=== PATIENT | male | born 1990 | race Caucasian/White ===

== ENCOUNTER 2023-01-19 14:58 | Outpatient (AMB) | payer OTHER, SELFPAY ==
[2023-01-19 15:18] VITALS: BP 120/72; PULSE 68; O2SAT 98; BMI 23.0
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
== END 2023-01-19 16:45 | disposition home or self-care (01) ==
PROVIDERS: PCP Family Medicine; Visit Provider Family Medicine
DX: K85.90 Acute pancreatitis without necrosis or infection, unspecified (principal); I44.7 Left bundle-branch block, unspecified; Z11.3 Encounter for screening for infections with a predominantly sexual mode of transmission; Z00.00 Encounter for general adult medical examination without abnormal findings
CPT/HCPCS: 99203

== ENCOUNTER 2023-03-08 09:58 | Outpatient (REF) | payer OTHER, SELFPAY ==
[2023-03-08 11:25] LABS: MANUAL DIFF FLAG NO
[2023-03-08 11:32] LABS: Basophils Percent Auto 0.8 % (0-2); Eosinophils Absolute Auto 0.3 X10*3/uL (0.0-0.4); Eosinophils Percent Auto 4.8 % (0-4); Hematocrit 43.1 % (42.0-52.0); Hemoglobin 14.3 g/dl (14.0-18.0); Imm Gran Abs Auto 0.01 X10*3/uL (0.00-0.03); Imm Gran Pct Auto 0.2 % (0.0-0.4); Lymphocytes Percent Auto 37.9 % (20-40); Mean Corpuscular HGB Conc 33.2 g/dl (31.0-36.0); Mean Corpuscular Hemoglobin 29.1 pg (27.0-33.0); Mean Corpuscular Volume 87.8 fL (80.0-98.0); Mean Platelet Volume 9.7 fL (9.4-12.4); Monocytes Absolute Auto 0.6 X10*3/uL (0.1-1.2); Monocytes Percent Auto 10.5 % (2-11); Neutrophils Absolute Auto 2.4 x10*3/uL (2.0-8.3); Neutrophils Percent Auto 45.8 % (45-73); Platelet Count 345 X10*3/uL (160-400); Red Blood Count 4.91 X10*6/uL (4.60-5.80); Red Cell Distribution Width 11.9 % (11.0-16.0); White Blood Count 5.2 X10*3/uL (4.8-10.8)
[2023-03-08 11:44] LABS: Appearance Urine Clear; Color Urine Yellow; Glucose Urine UA Negative (Negative); Leukocyte Esterase Urine Negative (Negative); Nitrite Urine Negative (Negative); PH 6.5 (5.0-9.0); Urine Blood Negative (Negative); Urine Ketones Negative (Negative); Urine Protein Negative (Neg-Trace)
[2023-03-08 12:12] LABS: Estimated Average Glucose 97 mg/dL
[2023-03-08 13:07] LABS: Alanine Aminotransferase 13 U/L (0-40); Albumin Level 4.6 g/dL (3.5-5.0); Alkaline Phosphatase 48 U/L (39-117); Anion Gap 12 (12-20); Aspartate Amino Transferase 23 U/L (5-37); Bilirubin Total 0.8 mg/dL (0.0-1.0); Blood Urea Nitrogen 17 mg/dL (9-16); Calcium 9.5 mg/dL (8.4-10.2); Carbon Dioxide 26 mmol/L (22-29); Chloride 106 mmol/L (96-108); Cholesterol 287 mg/dL (<200); Estimated Glomerular Filt Rate > 60; Glucose Fasting 83 mg/dL (60-99); HDL Cholesterol 47 mg/dL (>40); LDL Cholesterol Calculated 222 mg/dL (<100); Lipase 64 U/L (8-78); Potassium 3.9 mmol/L (3.3-5.1); Sodium 140 mmol/L (135-145); Total Protein 7.7 g/dL (6.5-8.0); Triglycerides 91 mg/dL (<150)
[2023-03-08 13:09] LABS: Creatinine Urine 225.64 mg/dL; Microalbum/Creatinine Ratio Ur 3.1 ug/mg cr (<30)
[2023-03-08 13:22] LABS: CT PCR NOT DETECTED (Not Detect.); NG PCR NOT DETECTED (Not Detect.)
[2023-03-08 13:23] LABS: TSH reflex Free T4 4.35 uIU/mL (0.32-4.0)
[2023-03-08 14:08] LABS: Free T4 (Free Thyroxine) 0.74 ng/dL (0.71-1.85)
[2023-03-09 04:12] LABS: Syphilis Screen Nonreactive (Nonreactive)
[2023-03-09 04:20] LABS: HBS Num1 137.53 mIU/mL (0-7.99); HBc Num1 0.25 S/CO (0.00-0.79); HBsAGNum1 0.36 S/CO (0.00-0.99); HIV AB/AG Nonreactive (Nonreactive); HIV Num 1 0.07 S/CO (0.00-0.99); Hepatitis B Core Antibody Nonreactive (Nonreactive); Hepatitis B Surface Antigen Negative (Negative); ~HepC Num1 0.21 S/CO (0.00-0.79); ~Hepatitis B Surface Antibody REACTIVE (Nonreactive); ~Hepatitis C Antibody Nonreactive (Nonreactive)
== END 2023-03-08 09:59 | disposition home or self-care (01) ==
LOC: HO.WFDLDS 09:58
PROVIDERS: Visit Provider Family Medicine
DX: Z00.00 Encounter for general adult medical examination without abnormal findings (principal); Z11.4 Encounter for screening for human immunodeficiency virus [HIV]; I10 Essential (primary) hypertension; K85.90 Acute pancreatitis without necrosis or infection, unspecified; R73.01 Impaired fasting glucose; Z20.2 Contact with and (suspected) exposure to infections with a predominantly sexual mode of transmission
CPT/HCPCS: 0353U; 80053; 80061; 81003; 82043; 83036; 83690; 84439; 84443; 85025; 86704; 86706; 86780; 86803; 87340; 87389

== ENCOUNTER 2023-03-18 13:56 | Outpatient (AMB) | payer OTHER, SELFPAY ==
--- NOTE | 2023-03-18 13:58 | A.OFFPC_ITS ---
Vital Signs 03/18/23 13:59 Height 5 ft 9 in Weight 230 lb 4 oz BMI 34.0 BP 122/64 Blood Pressure Location Lt brachial Pulse 81 Pulse Source Pulse Oximeter Pulse Oximetry (%) 98 Oxygen Delivery Method Room Air Intake Visit Reasons: CPE with f/u labs and health maintenance Intake Note: Patient is here for physical today and to follow up on labs. Allergies No Known Allergies Allergy (Unverified 03/18/23 14:07) Tobacco use date assessed: 03/18/23 HPI CPE with f/u labs and health maintenance HPI Details 32 y/o male presents for a CPE with f/u labs and health maintenance. Labs were drawn 03/08/23. Reviewed labs with pt. A1c 5.0%. TC 287. LDL 222. HDL 47. Triglycerides 91. TSH elevated at 4.35. He has an appt. with Cardiology in May. He exercises about 6 days a week. [facility] Medical History High blood pressure Acute pancreatitis Pneumonia Surgical History Hx of tonsillectomy Family History Father High blood pressure Mother High blood pressure Maternal Grandfather High blood pressure Maternal Grandmother High blood pressure Paternal Grandfather High blood pressure Paternal Grandmother High blood pressure Social History Household Members: None Housing: House Are you a primary patient care manager to a significant other at home: No Do you presently have visiting nurse or other home services: No 75 years or older and lives alone: No Alcohol intake: never Patient Tobacco Use Status: Never used Tobacco e-Cigarette/Vaping Use: Never Used Special mariah needs: No service: Yes Current occupational status: employed Current occupation: [employer]. Cognitive needs: No Hearing needs: No Vision needs: No Review of Systems Const Denies chills, Denies fatigue, Denies fever(s), Denies headache(s) and Denies weakness Eyes Denies change in vision ENT Denies dizziness, Denies headache(s), Denies hearing loss, Denies nasal congestion, Denies sinus pain, Denies sinus pressure and Denies sore throat Card Denies chest pain, Denies lightheadedness, Denies dyspnea and Denies other (palpitations) Resp Denies cough, Denies dyspnea and Denies wheezing GI Denies abdominal pain, Denies melena, Denies hematochezia, Denies change in sagar wel habits, Denies dyspepsia and Denies nausea Denies hematuria and Denies dysuria Musc Denies abnormal gait, Denies myalgias, Denies arthralgias, Denies numbness and Denies tingling Skin/Breast Denies rash, Denies unusual bruising and Denies wounds Neuro Denies abnormal gait, Denies dizziness, Denies headache(s), Denies memory loss, Denies numbness, Denies Sensory deficit (Neuro), Denies tingling and Denies weakness Psych Denies anxiety, Denies depression and Denies memory loss Endo Denies cold intolerance, Denies fatigue, Denies heat intolerance, Denies polydipsia and Denies polyuria Pramod/Lymph Denies easy bleeding and Denies easy bruising Aller/Immun Denies wheezing Physical exam (Primary Care) Vital Signs: Last Vital Signs Pulse 81 03/18/23 13:59 BP 122/64 03/18/23 13:59 Pulse Ox 98 03/18/23 13:59 Oxygen Delivery Method Room Air 03/18/23 13:59 BMI result Body Mass Index 34.0 Tobacco/Smoking Status: Tobacco use Status Tobacco use date assessed 03/18/23 03/18/23 14:07 Patient Tobacco Use Status Never used Tobacco 03/18/23 14:06 e-Cigarette/Vaping Use Never Used 03/18/23 14:06 Const General: no acute distress, well developed, alert and awake Nutritional Appearance: well nourished Orientation/consciousness: patient oriented x3 HENMT Head: Yes normocephalic and Yes atraumatic Ears: hearing grossly normal bilaterally and TM's normal bilaterally General nose exam: Normal external nose present and Normal nares present Mouth: Normal oral and palatal mucosa present and moist mucous membranes Teeth and gingiva: dentition normal Throat: Yes posterior oropharynx normal Eyes General: appearance normal, both eyes and all related structures Pupils: Equal, round and reactive pupils present and Pupil accommodation reflex normal EOM: EOMs intact bilaterally Neck Neck: Yes normal visual inspection, Yes no lymphadenopathy and Yes trachea midline Thyroid: Thyroid normal Carotids: no bruits Lymphatic: no lymphadenopathy noted Chest Chest palpation & inspection: normal inspection of the chest Resp Effort & Inspection: normal respiratory effort Auscultation: clear to auscultation bilaterally Cardio Rate: regular rate Rhythm: regular rhythm Heart sounds: S1 normal heart sound present, S2 normal heart sound present, no gallops, no murmurs and no rubs Bruits: no abdominal aortic bruits and no carotid bruits GI Palpation (GI): No Abdominal aortic bruit present, Soft to palpation, nontender, No hepatosplenomegaly present and No Rebound tenderness present Auscultation: normal bowel sounds General: Yes no CVA tenderness Back/Spine/Pelvis Back: no CVA tenderness Cervical Spine: cervical ROM normal and No Cervical spine tenderness Thoracic/Lumbar Spine: thoraco-lumbar ROM normal, No pain with thoraco-lumbar ROM, No thoracic spinal tenderness and No lumbar spinal tenderness Skin Lesions: no lesions Rashes: no rashes Trauma: no lacerations or abrasions Wounds: no wounds Nails: normal Neuro General: patient oriented x3 Cranial nerves: Yes Equal, round and reactive pupils present Cognition (Neuro): normal cognition Gait exam (Neuro): Normal gait present Motor exam (neuro): 5/5 motor strength present throughout Sensory Exam: No Sensory deficit (Neuro) Deep tendon reflexes (DTR's): Right patellar reflex intensity grade: 2+ and Left patellar reflex intensity grade: 2+ Extrem General: Yes normal to inspection and No edema Psych Appearance: grossly normal Affect: normal affect Attitude: cooperative Thought process: Normal thought process present Assessment and Plan Assessment & Plan (1) Annual physical exam: Code(s): Z00.00 - Encounter for general adult medical examination without abnormal findings Plan: 32-year-old male presents for complete physical exam Encouraged healthy diet with active lifestyle and plenty of exercise (2) Elevated LDL cholesterol level: Code(s): E78.00 - Pure hypercholesterolemia, unspecified Plan: Significantly elevated LDL cholesterol Patient says he is already eating a healthy dieting getting plenty of exercise Starting atorvastatin 40 mg daily and we may need to increase this to 80 mg daily. Patient has abnormal EKG with left bundle branch block. Denies any cardiac history however, except incidental abnormal EKG during workup for pancreatitis. He is already refer to Cardiology and has an upcoming appointment in May. He is asymptomatic. (3) Elevated TSH: Code(s): R79.89 - Other specified abnormal findings of blood chemistry Plan: Mildly elevated TSH level Will repeat this and follow-up in about a month (4) Left bundle branch block: Code(s): I44.7 - Left bundle-branch block, unspecified Plan: As above, abnormal EKG and today we reviewed significantly elevated lipid level Follow-up with Cardiology as recommended Orders: Orders Triiodothyronine T3 Total Today E03.9 - Hypothyroidism, unspecified Thyroid Stimulating Hormone Today E03.9 - Hypothyroidism, unspecified Comprehensive Met. Panel Today R79.89 - Other specified abnormal findings of blood chemistry Comprehensive [place]. Panel Fast 10 Weeks Z00.00 - Encounter for general adult medical examination without abnormal findings Lipid Panel 10 Weeks Z00.00 - Encounter for general adult medical examination without abnormal findings Free T4 (Free Thyroxine) Today E03.9 - Hypothyroidism, unspecified Medications: New atorvastatin 40 mg PO BEDTIME 30 days 30 tabs 2RF Coding Level of Care Code Est Pt Level 3 (50286) Est Pt Prev Care 18-39y(88148) Diagnoses Annual physical exam Z00.00 Elevated LDL cholesterol level E78.00 Elevated TSH R79.89 Left bundle branch block I44.7
[2023-03-18 13:59] VITALS: BP 122/64; PULSE 81; O2SAT 98; BMI 34.0
== END 2023-03-18 14:46 | disposition home or self-care (01) ==
PROVIDERS: PCP Family Medicine; Visit Provider Family Medicine
DX: Z00.00 Encounter for general adult medical examination without abnormal findings (principal); E78.00 Pure hypercholesterolemia, unspecified; R79.89 Other specified abnormal findings of blood chemistry; I44.7 Left bundle-branch block, unspecified
CPT/HCPCS: 99395

== ENCOUNTER 2023-04-16 09:33 | Outpatient (REF) | payer OTHER, SELFPAY | END 2023-04-16 09:34 | disposition home or self-care (01) | LOC: HO.WFDLDS 09:33 | PROVIDERS: Visit Provider Family Medicine | DX: Z00.00 Encounter for general adult medical examination without abnormal findings (principal); E03.9 Hypothyroidism, unspecified; R79.89 Other specified abnormal findings of blood chemistry | CPT/HCPCS: 36415; 80053; 80061; 84439; 84443; 84480 ==

== ENCOUNTER 2023-04-19 13:27 | Outpatient (AMB) | payer OTHER, SELFPAY ==
--- NOTE | 2023-04-19 13:24 | MHC.PC.OV ---
Intake Visit Reasons: Lab Results Intake Note: Patient is following up on lab results. Allergies No Known Allergies Allergy (Unverified 04/19/23 13:25) Tobacco use date assessed: 04/19/23 HPI Lab Results HPI Details Telemedicine?encounter?to?follow-up?elevated?TSH?level Patient?had?mildly?elevated?TSH?level?at?his?prior?lab?check. Asymptomatic.??He?notes?that?he?has?been?exercising and?losing?weight?intentionally?and?feels?well. More?recently,?his?TSH?level?has?crept?up?slightly?but?still?is?only?a?mild?elevation?and?his?free?T4?and?total?T3?are?within?normal?limits. Started?atorvastatin?not?long?ago?and?is?tolerating?this?well. Patient?feels?well.??No?complaints. [facility] Medical History High blood pressure Acute pancreatitis Pneumonia Surgical History Hx of tonsillectomy Family History Father High blood pressure Mother High blood pressure Maternal Grandfather High blood pressure Maternal Grandmother High blood pressure Paternal Grandfather High blood pressure Paternal Grandmother High blood pressure Social History Household Members: None Housing: House Are you a primary medicare coordinator to a significant other at home: No Do you presently have visiting nurse or other home services: No 75 years or older and lives alone: No Alcohol intake: never Patient Tobacco Use Status: Never used Tobacco e-Cigarette/Vaping Use: Never Used Special mariah needs: No service: Yes Current occupational status: employed Current occupation: [employer]. Cognitive needs: No Hearing needs: No Vision needs: No Review of Systems Const Denies chills, Denies fatigue, Denies fever(s), Denies headache(s) and Denies weakness ENT Denies dizziness and Denies headache(s) Card Denies dyspnea Resp Denies cough, Denies dyspnea, Denies wheezing and Denies other ( shortness of breath) Musc Denies numbness and Denies tingling Neuro Denies dizziness, Denies headache(s), Denies numbness, Denies tingling, Denies paresthesias and Denies weakness Psych Denies anxiety and Denies depression Endo Denies fatigue Aller/Immun Denies wheezing Physical exam (Primary Care) Tobacco/Smoking Status: Tobacco use Status Tobacco use date assessed 04/19/23 04/19/23 13:27 Patient Tobacco Use Status Never used Tobacco 04/19/23 13:27 e-Cigarette/Vaping Use Never Used 04/19/23 13:27 Const Other: Telemedicine.??Audio?only. Telehealth Telehealth Location of provider rendering services: practice address Location of patient: address on file Patient Identification confirmed using: Name, : Yes Telehealth method: voice only Patient verbally consented to treatment: Yes Patient verbally consented to billing insurance company: Yes Patient informed of any privacy concerns related to visit: Yes Minutes spent on Phone/Video with Pt.: 5 Assessment and Plan Assessment & Plan (1) Elevated TSH: Code(s): R79.89 - Other specified abnormal findings of blood chemistry Plan: Still?has?mildly?elevated?TSH?level. However,?free?T4?and?total?T3?are?within?normal?limits.??Patient?is?asymptomatic. We?will?continue?to?follow?this. (2) Elevated LDL cholesterol level: Code(s): E78.00 - Pure hypercholesterolemia, unspecified Plan: Patient?is?on?atorvastatin?and?tolerating?well. He?will?get?his?labs?drawn?prior?to?his?visit?in?June?and?we?can?discuss (3) Left bundle branch block: Code(s): I44.7 - Left bundle-branch block, unspecified Plan: Patient?feels?well. He?has?an?appointment?with?cardiology?already. Coding Level of Care Code Tele Est Pt Level 2 (17151) Diagnoses Elevated TSH R79.89 Elevated LDL cholesterol level E78.00 Left bundle branch block I44.7
== END 2023-04-19 14:45 | disposition home or self-care (01) ==
LOC: HO.HMGFM 13:27
PROVIDERS: PCP Family Medicine; Visit Provider Family Medicine
DX: R79.89 Other specified abnormal findings of blood chemistry (principal); E78.00 Pure hypercholesterolemia, unspecified; I44.7 Left bundle-branch block, unspecified
CPT/HCPCS: 99212

== ENCOUNTER 2023-04-20 07:46 | Outpatient (AMB) | payer OTHER, SELFPAY ==
--- NOTE | 2023-04-20 07:44 | MHC.OFFVIS ---
Intake Vital Signs 04/20/23 07:55 Height 5 ft 9 in Weight 195 lb BMI 28.8 BP 122/68 Blood Pressure Location Lt brachial Position Sitting Pulse 73 Intake Visit Reasons: Colonoscopy Screening Intake Note: New consult for Pancreatitis with out necrosis. Patient was s/c for Pre Colonoscopy but that was not the DX for this consult. Patient denies any GI issues. Parking Attendant Required: No Accompanied by: Self / Same As Patient Allergies No Known Allergies Allergy (Unverified 04/19/23 13:25) HPI HPI Comments History of Present Illness Details A 32-year-old male referred from PCP January 2019-back pain-returnesed a few day later-admitted-@ [facility]- dx pancreatitis-with elevated enzymes-not a drinker-at that time- npo- then advanced- no issues until 2020- random- epigastric pain- no etoh- dietary modification- abdominal pain- admitted at [facility]- again= NPO- d/c after 4 days- pain resolved - He has not had any further issues- he drinks socially- 1 beer- following day- epigastric pain- admitted in [facility]- with pancreatitis 2nd attempt, LVM requesting a call back to schedule appt. Dx: Pancreatitis without necrosis One week reminder set up for follow up call. Wyatt Lombardo removed from item. [facility] Medical History High blood pressure Acute pancreatitis Pneumonia Surgical History Hx of tonsillectomy Family History Father High blood pressure Mother High blood pressure Maternal Grandfather High blood pressure Maternal Grandmother High blood pressure Paternal Grandfather High blood pressure Paternal Grandmother High blood pressure Social History Household Members: None Housing: House Are you a primary primary care pediatrician to a significant other at home: No Do you presently have visiting nurse or other home services: No 75 years or older and lives alone: No Alcohol intake: never Patient Tobacco Use Status: Never used Tobacco e-Cigarette/Vaping Use: Never Used Special mariah needs: No service: Yes Current occupational status: employed Current occupation: [employer]. Cognitive needs: No Hearing needs: No Vision needs: No Review of Systems Const All systems reviewed & are unremarkable except as noted in HPI and below Card Denies chest pain and Denies dyspnea Resp Denies dyspnea GI Denies abdominal pain, Denies hematochezia, Denies change in bowel habits, Denies diarrhea, Denies loose stools, Denies nausea and Denies vomiting Assessment & Plan Assessment & Plan (1) Pancreatitis: Comment: Referred for further evaluation at 3 hospital admissions pancreatitis unclear etiology No hospital records for review Will further consult with MD given complexity Will get imaging Labs Avoid alcohol Code(s): K85.90 - Acute pancreatitis without necrosis or infection, unspecified Plan: Sent note to Dr. 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 with no Plan Returned call to patient Ultrasound-if negative will get MRI to rule out structural damage/pancreas divisum-if negative genetic testing Avoid alcohol Labs Patient Instructions: A pleasant 32-year-old male referred for further evaluation hx pancreatitis with 3 hospital admission- Discussed plan to further consult with MD however we will get imaging-will discuss best modality Labs, Avoid alcohol Encouraged to call with questions or concerns Will follow back in [place] after ultrasound Coding Level of Care Code New Pt Level 4 (17104) Diagnoses Pancreatitis K85.90 Time Spent (min) 35 Comment 2nd/3rd opinion-
[2023-04-20 07:55] VITALS: BP 122/68; PULSE 73; BMI 28.8
== END 2023-04-21 13:12 | disposition home or self-care (01) ==
PROVIDERS: PCP Family Medicine; Visit Provider Physician Assistant
DX: K85.90 Acute pancreatitis without necrosis or infection, unspecified (principal)
CPT/HCPCS: 99204

== ENCOUNTER → 2023-04-20 07:46 | Outpatient (BNVA) | payer OTHER, SELFPAY | PROVIDERS: PCP Family Medicine; Visit Provider Physician Assistant ==

== ENCOUNTER 2023-05-19 19:42 | Emergency (ER) | payer OTHER, SELFPAY ==
--- NOTE | ~2023-05-19 | CT_ITS ---
EXAMINATION: CT ABDOMEN AND PELVIS WITHOUT CONTRAST CLINICAL INFORMATION: Flank pain. COMPARISON: None available. TECHNIQUE: Multidetector volumetric imaging was performed from the superior aspect of the liver through the pubic symphysis. Sagittal and coronal reformatted images were obtained on the technologist's workstation. This CT examination was performed using dose optimization techniques as appropriate, variously including the following: *Automated exposure control *Adjustment of mA and/or kV according to patient size (this includes techniques or standardized protocols for targeted exams where dose is matched to indication/reason for exam; i.e. extremities or head) *Use of iterative reconstruction technique DLP: 567 mGy-cm FINDINGS: LUNG BASES: Bibasilar subsegmental atelectasis. No focal consolidation or pleural effusion. LIVER, GALLBLADDER, AND BILIARY TREE: The liver is normal in size, shape, and attenuation. No focal hepatic lesion or biliary ductal dilatation is present. The gallbladder is unremarkable with no evidence of radiopaque gallstones, gallbladder wall thickening, or obvious pericholecystic inflammatory changes. PANCREAS: Subtle proximal peripancreatic fat stranding. Homogeneous appearance of the pancreatic parenchyma. No main duct dilatation. SPLEEN: Unremarkable. ADRENAL GLANDS: Unremarkable. KIDNEYS AND URETERS: Indeterminate coarse calcifications abutting the anterior surface of the mid to upper right kidney. No nephrolithiasis or hydronephrosis. No perinephric fat stranding. BLADDER: Unremarkable. GASTROINTESTINAL TRACT: The stomach and the small bowel are nondilated. Normal appendix. No evidence of bowel obstruction. ABDOMINAL WALL: Small fat-containing umbilical hernia. LYMPH NODES: No lymphadenopathy. VASCULAR: Normal caliber abdominal aorta. Mild nonspecific mesenteric vasculature engorgement, for instance along the mesentery of the small bowel in the central abdomen image 39 series 3. PELVIC VISCERA: Unremarkable. OSSEOUS STRUCTURES: Unremarkable. CT/CT abdomen pelvis wo IV con IMPRESSION: 1. Subtle proximal peripancreatic fat stranding suggesting acute pancreatitis. Correlate with lipase levels. 2. Mild nonspecific mesenteric vasculature engorgement, possibly physiologic although this could also be seen with gastroenteritis. 3. No nephrolithiasis or hydronephrosis. 4. Indeterminate coarse calcifications abutting the anterior surface of the mid to upper right kidney; uncertain if these could represent sequela of prior surgery or sequela of old trauma/chronic subcapsular hematoma. Out of precaution, a follow-up preferable MRI of the abdomen is recommended in 6-12 months for reevaluation.
[2023-05-19 19:48] VITALS: BP 126/66; PULSE 77; RESP 16; TEMP 36.8; O2SAT 98; BMI 28.4
[2023-05-19 20:06] LABS: MANUAL DIFF FLAG NO
[2023-05-19 20:08] LABS: Basophils Absolute Auto 0.1 X10*3/uL (0.0-0.2); Basophils Percent Auto 0.6 % (0-2); Eosinophils Absolute Auto 0.3 X10*3/uL (0.0-0.4); Hematocrit 39.3 % (42.0-52.0); Hemoglobin 13.3 g/dl (14.0-18.0); Imm Gran Abs Auto 0.01 X10*3/uL (0.00-0.03); Imm Gran Pct Auto 0.1 % (0.0-0.4); Lymphocytes Absolute Auto 3.1 X10*3/uL (1.2-4.9); Lymphocytes Percent Auto 40.1 % (20-40); Mean Corpuscular HGB Conc 33.8 g/dl (31.0-36.0); Mean Corpuscular Hemoglobin 28.9 pg (27.0-33.0); Mean Corpuscular Volume 85.2 fL (80.0-98.0); Mean Platelet Volume 9.1 fL (9.4-12.4); Monocytes Absolute Auto 0.7 X10*3/uL (0.1-1.2); Monocytes Percent Auto 9.5 % (2-11); Neutrophils Absolute Auto 3.5 x10*3/uL (2.0-8.3); Neutrophils Percent Auto 45.7 % (45-73); Platelet Count 307 X10*3/uL (160-400); Red Blood Count 4.61 X10*6/uL (4.60-5.80); Red Cell Distribution Width 11.8 % (11.0-16.0); White Blood Count 7.7 X10*3/uL (4.8-10.8)
[2023-05-19 20:11] LABS: Appearance Urine Clear; Color Urine Yellow; Glucose Urine UA Negative (Negative); Leukocyte Esterase Urine Negative (Negative); Nitrite Urine Negative (Negative); PH 6.5 (5.0-9.0); Urine Blood Negative (Negative); Urine Ketones Negative (Negative); Urine Protein Negative (Neg-Trace)
[2023-05-19 20:28] LABS: Alanine Aminotransferase 15 U/L (0-40); Albumin Level 4.7 g/dL (3.5-5.0); Alkaline Phosphatase 55 U/L (39-117); Anion Gap 11 (12-20); Aspartate Amino Transferase 33 U/L (5-37); Bilirubin Total 0.6 mg/dL (0.0-1.0); Blood Urea Nitrogen 18 mg/dL (9-16); Calcium 9.2 mg/dL (8.4-10.2); Carbon Dioxide 26 mmol/L (22-29); Chloride 107 mmol/L (96-108); Creatinine Clr Calc Pharmacy 104.4; Estimated Glomerular Filt Rate > 60; Glucose Random 99 mg/dL (60-115); Potassium 3.8 mmol/L (3.3-5.1); Sodium 140 mmol/L (135-145); Total Protein 7.5 g/dL (6.5-8.0)
[2023-05-19 21:19] VITALS: BP 135/78; PULSE 72; RESP 17; TEMP 36.8; O2SAT 98
[2023-05-19 21:43] LABS: Ethanol < 10 mg/dL; Lipase 36 U/L (8-78); Triglycerides 94 mg/dL (<150)
--- NOTE | 2023-05-19 21:43 | ED.ABDPAIN ---
HPI - Abdominal Pain General Chief Complaint: Abdominal Pain Stated Complaint: severe kidney pain Time Seen by Provider: 05/19/23 21:40 Source: patient Mode of arrival: ambulatory Limitations: no limitations History of Present Illness HPI narrative: Patient with history of idiopathic pancreatitis last flare-up was in 10/01 non alcoholic comes here with bilateral flank pain started today afternoon no nausea no vomiting no abdominal pain does not feel hungry no fever no chills no urine complaints patient never had any kidney stone in previous CT scan no injury no leg weakness Related Data Previous Rx's Medication Instructions Recorded atorvastatin 40 mg tablet 40 mg PO BEDTIME 30 days #30 tabs 03/18/23 cyclobenzaprine 10 mg tablet 10 mg PO Q8H #20 tabs 05/19/23 oxycodone 5 mg tablet 5 mg PO Q6H PRN pain #30 tabs 05/19/23 Allergies Allergy/AdvReac Type Severity Reaction Status Date / Time No Known Allergies Allergy Unverified 04/19/23 13:25 Review of Systems Review of Systems Yes all other systems are reviewed and are negative [facility] Past Medical History Medical History High blood pressure Acute pancreatitis Pneumonia Surgical History Hx of tonsillectomy Family History Family History Father High blood pressure Mother High blood pressure Maternal Grandfather High blood pressure Maternal Grandmother High blood pressure Paternal Grandfather High blood pressure Paternal Grandmother High blood pressure Social History Social History Household Members: None Housing: House Are you a primary care provider to a significant other at home: No Do you presently have visiting nurse or other home services: No Alcohol intake: never Patient Tobacco Use Status: Never used Tobacco Smoked in Last 30 Days: No e-Cigarette/Vaping Use: Never Used Use of substances other than those prescribed or required for medical reasons: No Special mariah needs: No Advance Directives: No Advance Directives Information Provided: No service: Yes Current occupational status: employed Current occupation: [employer]. Cognitive needs: No Hearing needs: No Vision needs: No Physical Exam ED Vital Signs: Vital Signs - 24 hr 05/19/23 19:48 05/19/23 21:19 Temperature 98.2 F 98.2 F Pulse Rate 77 72 Respiratory Rate 16 17 Blood Pressure 126/66 135/78 Pulse Oximetry 98 98 Oxygen Delivery Method Room Air Room Air BMI result Body Mass Index 28.4 Appearance: Alert. Oriented X3. No acute distress. Eyes: No pallor no icterus ENT: Pharynx normal. Oral Mucosa moist Neck: Normal inspection. Neck supple. CVS: Normal heart rate and rhythm. Pulses normal. Respiratory: No respiratory distress. Equal air entry bilateral, no wheezing/rales/rhonchi Abdomen: Soft and nontender. Bowel sounds are present, no mass palpable bilateral flank tenderness no midline tenderness no spinal tenderness Skin: Skin warm and dry. Normal skin color. Normal skin turgor. Extremities: No lower extremity edema. No calf tenderness Neuro: Oriented X 3. No motor deficit. No sensory deficit.No cerebellar signs , cranial nerves II-XII intact Medical Decision Making Differential Diagnosis Differential Diagnoses: The differential diagnosis associated with the presentation includes Musculoskeletal pain/UTI/kidney stone/pancreatitis Lab Data MDM Lab Attestation statement: I reviewed the patient's lab results. 05/19/23 20:01 05/19/23 20:01 Labs: Lab Results 05/19/23 05/19/23 Range/Units 20:01 20:02 WBC 7.7 (4.8-10.8) X10*3/uL RBC 4.61 (4.60-5.80) X10*6/uL Hgb 13.3 L (14.0-18.0) g/dl Hct 39.3 L (42.0-52.0) % MCV 85.2 (80.0-98.0) fL MCH 28.9 (27.0-33.0) pg MCHC 33.8 (31.0-36.0) g/dl RDW 11.8 (11.0-16.0) % Plt Count 307 (160-400) X10*3/uL MPV 9.1 L (9.4-12.4) fL Immature Gran % (Auto) 0.1 (0.0-0.4) % Neut % (Auto) 45.7 (45-73) % Lymph % (Auto) 40.1 H (20-40) % [place] % (Auto) 9.5 (2-11) % Eos % (Auto) 4.0 (0-4) % Baso % (Auto) 0.6 (0-2) % Lymph # (Auto) 3.1 (1.2-4.9) X10*3/uL [place] # (Auto) 0.7 (0.1-1.2) X10*3/uL Eos # (Auto) 0.3 (0.0-0.4) X10*3/uL Baso # (Auto) 0.1 (0.0-0.2) X10*3/uL Abs Immat Gran (auto) 0.01 (0.00-0.03) X10*3/uL Absolute Neuts (auto) 3.5 (2.0-8.3) x10*3/uL Absolute Nucleated RBC 0.000 (0.0-0.012) X10*3/uL Nucleated RBC % (auto) 0.0 (0.0-0.2) /100WBC Sodium 140 (135-145) mmol/L Potassium 3.8 (3.3-5.1) mmol/L Chloride 107 (96-108) mmol/L Carbon Dioxide 26 (22-29) mmol/L Anion Gap 11 L (12-20) BUN 18 H (9-16) mg/dL Creatinine 1.12 (0.5-1.4) mg/dL Estim Creat Clear Calc 104.4 Estimated GFR > 60 Random Glucose 99 (60-115) mg/dL Calcium 9.2 (8.4-10.2) mg/dL Total Bilirubin 0.6 (0.0-1.0) mg/dL AST 33 (5-37) U/L ALT 15 (0-40) U/L Alkaline Phosphatase 55 (39-117) U/L Lactate Dehydrogenase 191 (118-273) U/L Total Protein 7.5 (6.5-8.0) g/dL Albumin 4.7 (3.5-5.0) g/dL Triglycerides 94 (<150) mg/dL Lipase 36 (8-78) U/L Urine Color Yellow Urine Appearance Clear Urine pH 6.5 (5.0-9.0) Ur Specific [place] 1.010 (1.005-1.025) Urine Protein Negative (Neg-Trace) mg/dL Urine Glucose (UA) Negative (Negative) mg/dL Urine Ketones Negative (Negative) mg/dL Urine Blood Negative (Negative) Urine Nitrite Negative (Negative) Ur Leukocyte Esterase Negative (Negative) Ethyl Alcohol < 10 mg/dL Medications Administered Discontinued Medications Generic Name Dose Route Start Last Admin Trade Name Freq PRN Reason Stop Dose Admin Cyclobenzaprine HCl 10 mg 05/19/23 23:39 05/19/23 23:55 Cyclobenzaprine Hcl 10 Mg Tablet PO 05/19/23 23:40 10 mg ONCE ONE Administration Morphine Sulfate 15 mg 05/19/23 21:53 05/19/23 22:03 Morphine Sulfate Immed Release 15 Mg Tablet PO 05/19/23 21:54 15 mg ONCE ONE Administration Oxycodone HCl 10 mg 05/19/23 23:39 05/19/23 23:55 Oxycodone Hcl Immed Release 5 Mg Tablet PO 05/19/23 23:40 10 mg ONCE ONE Administration Discharge Plan Discharge Clinical Impression: Pancreatitis, Back pain Patient Disposition: Home, Self-Care Instructions: Pancreatitis (ED), Back Pain (ED) Additional Instructions: Drink plenty of fluids Clear liquids advanced slowly Pain medication as prescribed Report to the ER if worsening of the pain/vomiting Prescriptions: New oxycodone 5 mg tablet 5 mg PO Q6H PRN (Reason: pain) Qty: 30 0RF Rx Instructions: Partial Fill upon patient request. cyclobenzaprine 10 mg tablet 10 mg PO Q8H Qty: 20 0RF No Action atorvastatin 40 mg tablet 40 mg PO BEDTIME 30 Days Qty: 30 2RF Interventions: ED Discharge Assessment Last Done: 05/20/23 00:00 Discharge Date/Time: 05/20/23 00:21
[2023-05-19 21:54] LABS: Lactate Dehydrogenase 191 U/L (118-273)
[2023-05-19] MEDS: Morphine Sulfate Immed Release 15 MG TABLET PO (22:03)
[2023-05-19] MEDS: Cyclobenzaprine HCl 10 MG TABLET PO (23:55)
[2023-05-19] MEDS: oxyCODONE HCl Immed Release 5 MG TABLET 10 MG PO (23:55)
== END 2023-05-20 00:21 | disposition home or self-care (01) ==
PROVIDERS: Emergency Medicine; Emergency Provider Internal Medicine; PCP Family Medicine
DX: K85.90 Acute pancreatitis without necrosis or infection, unspecified (principal); M54.50 Low back pain, unspecified; Z79.899 Other long term (current) drug therapy
CPT/HCPCS: 36415; 74176; 80053; 80307; 81003; 83615; 83690; 84478; 85025; 99284

== ENCOUNTER 2023-05-21 08:40 | Outpatient (AMB) | payer OTHER, SELFPAY ==
[2023-05-21 08:47] VITALS: BP 134/80; PULSE 94; BMI 29.2
--- NOTE | 2023-05-21 08:47 | MHC.OFFVIS ---
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 Patient himself denies having any cardiac issues including coronary disease or myocardial infarction or cardiomyopathy or in fact anything cardiac sounding the past. Apparently had episodes of pancreatitis. Recent ER visit with some back pain and according to patient he was told that could be from inflammation of pancreas. He still in lot of back pain and does not look very comfortable. However, no cardiac symptoms like chest pain or shortness of breath or anything along those lines. [facility] Medical History High blood pressure Acute pancreatitis Pneumonia Surgical History Hx of tonsillectomy Family History Father High blood pressure Mother High blood pressure Maternal Grandfather High blood pressure Maternal Grandmother High blood pressure Paternal Grandfather High blood pressure Paternal Grandmother High blood pressure Social History Household Members: None Housing: House Are you a primary manager of care to a significant other at home: No Do you presently have visiting nurse or other home services: No 75 years or older and lives alone: No Alcohol intake: never Patient Tobacco Use Status: Never used Tobacco e-Cigarette/Vaping Use: Never Used Special mariah needs: No service: Yes Current occupational status: employed Current occupation: [employer]. Cognitive needs: No Hearing needs: No Vision needs: No Review of Systems Const Denies weakness ENT Denies dizziness Card Denies chest pain, Denies chest pain with activity, Denies syncope, Denies rapid heart rate, Denies pedal edema, Denies edema, Denies leg edema, Denies lightheadedness, Denies palpitations, Denies dyspnea, Denies dyspnea on exertion and Denies orthopnea Resp Denies cough, Denies dyspnea and Denies dyspnea on exertion GI Denies hematochezia and Denies change in stool character Musc Denies abnormal gait, Denies muscle cramps, Denies muscle weakness, Denies numbness, Denies radiating pain into limb and Denies tingling Neuro Denies abnormal gait, Denies dizziness, Denies syncope, Denies numbness, Denies tingling and Denies weakness Endo Denies palpitations Physical Exam Vital Signs: Last Vital Signs Pulse 94 05/21/23 08:47 BP 134/80 05/21/23 08:47 BMI result Body Mass Index 29.2 Const General: comfortable and no acute distress Orientation/consciousness: patient oriented x3 HEENT Other: Unremarkable Head: Yes normal to inspection Neck Neck: Yes normal visual inspection Chest Chest palpation & inspection: normal inspection of the chest Resp Auscultation: clear to auscultation bilaterally Cardio Palpation: normal PMI Heart sounds: S1 normal heart sound present, S2 normal heart sound present, no gallops, no murmurs and no rubs GI Palpation (GI): Soft to palpation Back/Spine/Pelvis Other: unremarkable Skin General skin exam: no rashes or lesions noted Neuro General: patient oriented x3 Extrem General: Yes normal to inspection Psych Mental Status: mental status grossly normal Assessment & Plan Assessment & Plan (1) Left bundle branch block: Code(s): I44.7 - Left bundle-branch block, unspecified Plan In the recent EKG, underlying rhythm is sinus at 59/Min; left bundle-branch block pattern noted. No previous EKG for comparison. Pathophysiology of the bundle-branch block discussed with patient. Understands. We will get echocardiogram for LV function assessment and for any cardiomyopathy. Coronary CTA to be performed to assess for any CAD/coronary anomaly. Follow-up after testing. Orders: Orders CT Cardiac Coronary Angio Today I25.10 - Atherosclerotic heart disease of [place] coronary artery without angina pectoris, I44.7 - Left bundle-branch block, unspecified CA echo transthoracic complete Today I44.7 - Left bundle-branch block, unspecified Coding Level of Care Code New Pt Level 4 (62988) Diagnoses Left bundle branch block I44.7
== END 2023-05-21 09:10 | disposition home or self-care (01) ==
PROVIDERS: PCP Family Medicine; Visit Provider Internal Medicine
DX: I44.7 Left bundle-branch block, unspecified (principal)
CPT/HCPCS: 99204

== ENCOUNTER → 2023-05-21 08:40 | Outpatient (BNVA) | payer OTHER, SELFPAY | PROVIDERS: PCP Family Medicine; Visit Provider Internal Medicine | DX: I44.7 Left bundle-branch block, unspecified (principal) | CPT/HCPCS: 99202 ==

== ENCOUNTER 2023-07-19 11:33 | Outpatient (REF) | payer OTHER, SELFPAY | END 2023-07-19 11:34 | disposition home or self-care (01) | LOC: HO.WFDLDS 11:33 | PROVIDERS: Visit Provider Family Medicine | DX: Z00.00 Encounter for general adult medical examination without abnormal findings (principal); R79.89 Other specified abnormal findings of blood chemistry; E78.00 Pure hypercholesterolemia, unspecified | CPT/HCPCS: 36415; 80053; 80061; 84439; 84443 ==

== ENCOUNTER 2023-08-16 09:52 | Outpatient (AMB) | payer OTHER, SELFPAY ==
[2023-08-16 10:26] VITALS: BP 120/84; PULSE 57
--- NOTE | 2023-08-16 10:26 | MHC.OFFVIS ---
Intake Vital Signs 08/16/23 10:26 Height 5 ft 9 in Weight 203 lb 4.259 oz BMI 30.0 BP 120/84 Blood Pressure Location Lt brachial Position Sitting Pulse 57 Pulse Source Pulse Oximeter Intake Visit Reasons: f/u after CTA Ply Splicer Required: No Allergies No Known Allergies Allergy (Verified 08/16/23 10:28) Medication List - Last Reconciled 08/16/23 by Linda Trinh, SONYA-C No Known Home Meds HPI f/u after CTA HPI Details Kiran is a 32-year-old male with past medical history of hypertension, pancreatitis, left bundle branch block who presents after recent CTA of the coronary arteries. Today he reports he has been feeling well with no concerning symptoms. He denies chest discomfort at rest or with activity. No shortness of breath, palpitations, presyncope, syncope, PND, orthopnea or edema. Reports good activity tolerance. 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 Tells me he goes to the gym 6 days a week and runs for exercise. [facility] Medical History (Updated 08/16/23 @ 11:34 by Linda Trinh, SONYA-C) High blood pressure Acute pancreatitis Pneumonia Surgical History Hx of tonsillectomy Family History Father High blood pressure Mother High blood pressure Maternal Grandfather High blood pressure Maternal Grandmother High blood pressure Paternal Grandfather High blood pressure Paternal Grandmother High blood pressure Social History Household Members: None Housing: House Are you a primary child care leader to a significant other at home: No Do you presently have visiting nurse or other home services: No Alcohol intake: never Patient Tobacco Use Status: Never used Tobacco e-Cigarette/Vaping Use: Never Used Special mariah needs: No service: Yes Current occupational status: employed Current occupation: [employer]. Cognitive needs: No Hearing needs: No Vision needs: No Review of Systems Const All systems reviewed & are unremarkable except as noted in HPI and below Denies fatigue Card Denies chest pain and Denies dyspnea on exertion Resp Denies dyspnea on exertion Psych Denies anxiety Endo Denies fatigue Physical Exam Vital Signs: Last Vital Signs Pulse 57 08/16/23 10:26 BP 120/84 08/16/23 10:26 BMI result Body Mass Index 30.0 Const General: cooperative, healthy appearing, comfortable and no acute distress Orientation/consciousness: patient oriented x3 Neck Neck: Yes normal visual inspection Resp Effort & Inspection: normal respiratory effort Auscultation: clear to auscultation bilaterally, no crackles, no rales, no rhonchi and no wheezes Cardio Jugular venous distension: no JVD Rate: regular rate Rhythm: regular rhythm Heart sounds: S1 normal heart sound present, S2 normal heart sound present, no murmurs and no rubs GI Inspection: Yes normal to inspection Skin General skin exam: no rashes or lesions noted Neuro General: patient oriented x3 Extrem General: Yes normal to inspection, No no pedal edema and No calf tenderness Psych Appearance: grossly normal Mental Status: mental status grossly normal Speech and movement: Normal speech and movement present Assessment & Plan Assessment & Plan (1) Abnormal EKG: Code(s): R94.31 - Abnormal electrocardiogram [ECG] [EKG] Plan: EKG has finding of left bundle branch block. Unknown chronicity. No other cardiac history. Does have history of hypertension. He underwent a CTA of the coronary arteries on 08/06/2023 showing no coronary artery disease. An echocardiogram was previously ordered however not completed as of yet. Will help him make this appointment prior to leaving the office today. Plan to call him with echo results once available. Diagnosis of left bundle branch block and it is association with future cardiomyopathy reviewed with him. He states understanding. Cardiology follow-up in 1 year, sooner if needed. (2) Left bundle branch block: Code(s): I44.7 - Left bundle-branch block, unspecified Plan: As above (3) High blood pressure: Code(s): I10 - Essential (primary) hypertension Plan: History of hypertension, not requiring medication management at this time. Blood pressure is in the normal range presently. Plan Time spent on chart review, documentation, interview and assessment Coding Level of Care Code Est Pt Level 3 (79475) Diagnoses Abnormal EKG R94.31 Left bundle branch block I44.7 High blood pressure I10 Time Spent (min) 22
== END 2023-08-16 10:53 | disposition home or self-care (01) ==
PROVIDERS: PCP Family Medicine; Visit Provider Nurse Practitioner Family
DX: R94.31 Abnormal electrocardiogram [ECG] [EKG] (principal); I44.7 Left bundle-branch block, unspecified; I10 Essential (primary) hypertension
CPT/HCPCS: 99213

== ENCOUNTER → 2023-08-16 09:52 | Outpatient (BNVA) | payer OTHER, SELFPAY | PROVIDERS: PCP Family Medicine; Visit Provider Nurse Practitioner Family | DX: R94.31 Abnormal electrocardiogram [ECG] [EKG] (principal); I44.7 Left bundle-branch block, unspecified; I10 Essential (primary) hypertension | CPT/HCPCS: 99212 ==

== ENCOUNTER 2023-08-23 10:26 | Outpatient (AMB) | payer OTHER, SELFPAY ==
[2023-08-23 10:30] VITALS: BP 125/74; PULSE 66; O2SAT 96; BMI 30.3
--- NOTE | 2023-08-23 10:30 | MHC.PC.OV ---
Vital Signs 08/23/23 10:30 Height 5 ft 9 in Weight 205 lb 4 oz BMI 30.3 BP 125/74 Blood Pressure Location Lt brachial Position Sitting Pulse 66 Pulse Source Pulse Oximeter Pulse Oximetry (%) 96 Oxygen Delivery Method Room Air Intake Visit Reasons: f/u hypercholesterolemia, see comments Intake Note: Patient is following up on hypercholesterolemia. Allergies No Known Allergies Allergy (Verified 08/23/23 10:32) Tobacco use date assessed: 08/23/23 Dental Screening Dental Screen Date: 08/23/23 Did you have a dental visit in the last 12 months?: Yes Did you have a dental problem in the last 6 months where you did not have access to dental care?: No Was dental information given to patient?: Patient has dentist HPI f/u hypercholesterolemia, see comments HPI Details 32 y/o male presents to f/u hypercholesterolemia. Labs were drawn 07/19/23. Reviewed labs with pt. TC 247. LDL worsened from 103 to 187. HDL 41. TSH elevated at 4.18. PFSH Medical History High blood pressure Acute pancreatitis Pneumonia Surgical History Hx of tonsillectomy Family History Father High blood pressure Mother High blood pressure Maternal Grandfather High blood pressure Maternal Grandmother High blood pressure Paternal Grandfather High blood pressure Paternal Grandmother High blood pressure Social History Household Members: None Housing: House Are you a primary managed care director to a significant other at home: No Do you presently have visiting nurse or other home services: No 75 years or older and lives alone: No Alcohol intake: never Patient Tobacco Use Status: Never used Tobacco e-Cigarette/Vaping Use: Never Used Special mariah needs: No service: Yes Current occupational status: employed Current occupation: [employer]. Cognitive needs: No Hearing needs: No Vision needs: No Questionnaire PHQ-9 Over the last 2 weeks, how often have you been bothered by any of the following problems? 1. Little interest or pleasure in doing things: not at all 2. Feeling down, depressed, or hopeless: not at all 3. Trouble falling or staying asleep, or sleeping too much: not at all 4. Feeling tired or having little energy: not at all 5. Poor appetite or overeating: not at all 6. Feeling bad about yourself - or that you are a failure or have let yourself or your family down: not at all 7. Trouble concentrating on things, such as reading the newspaper or watching television: not at all 8. Moving or speaking so slowly that other people could have noticed. Or the opposite - being so fidgety or restless that you have been moving around a lot more than usual: not at all 9. Thoughts that you would be better off or of hurting yourself in some way: not at all Total score: 0 Source: Developed by Drs. Ze Villatoro, Marnie Olsen, Tim Painter and colleagues, with an educational jase from [employer]. Thrive Questionnaire Date Thrive assessed: 08/23/23 I am a: Patient What is your living situation today?: I have a steady place to live Within the past 12 months, did the food you bought not last and you didn't have the money to get more?: Never true Within the past 12 months, did you worry whether your food would run out before you got money to buy more?: Never true Do you have trouble paying for medicines?: No Do you have trouble getting transportation to medical appointments?: No Do you have trouble paying your heating and electricity bill?: No Do you have trouble taking care of your child, family member or friend?: No Do you have trouble with day-to-day activities such as bathing, preparing meals, shopping, managing finances, etc.?: No Are you currently unemployed and looking for a job?: No Are you interested in more education?: No THRIVE Score: 0 AUDIT C Alcohol Use Questionnaire (AUDIT-C) 1. How often do you have a drink containing alcohol?: Never 3. How often do you have six or more drinks on one occasion?: Never Total Score: 0 POLLY-7 AMB Questionnaire POLLY-7 Date POLLY - 7 assessed: 08/23/23 Feeling nervous, anxious, or on edge: 0 = Not at all Not being able to stop or control worryin = Not at all Worrying too much about different things: 0 = Not at all Trouble relaxin = Not at all Being so restless that it is hard to sit still: 0 = Not at all Becoming easily annoyed or irritable: 0 = Not at all Feeling afraid as if something awful might happen: 0 = Not at all Total POLLY-7 score (0-4 normal; 5-9 mild; 10-14 moderate; 15-21 severe): 0 Source: Developed by Drs. Ze Villatoro, Marnie Olsen, Tim Painter and colleagues, with an educational jase from [employer]. Review of Systems Const Denies chills, Denies fatigue, Denies fever(s), Denies headache(s) and Denies weakness ENT Denies dizziness and Denies headache(s) Card Denies dyspnea Resp Denies cough, Denies dyspnea, Denies wheezing and Denies other (shortness of breath) Musc Denies numbness and Denies tingling Neuro Denies dizziness, Denies headache(s), Denies numbness, Denies tingling and Denies weakness Psych Denies anxiety and Denies depression Endo Denies fatigue Aller/Immun Denies wheezing Physical exam (Primary Care) Vital Signs: Last Vital Signs Pulse 66 08/23/23 10:30 BP 125/74 08/23/23 10:30 Pulse Ox 96 08/23/23 10:30 Oxygen Delivery Method Room Air 08/23/23 10:30 BMI result Body Mass Index 30.3 Tobacco/Smoking Status: Tobacco use Status Tobacco use date assessed 08/23/23 08/23/23 10:33 Patient Tobacco Use Status Never used Tobacco 08/23/23 10:33 e-Cigarette/Vaping Use Never Used 08/23/23 10:33 PHQ-9: PHQ-9 Score PHQ-9: Total score 0 08/23/23 11:01 Thrive Assessment: Date of Thrive Assessment Date Thrive assessed 08/23/23 08/23/23 10:38 Const General: well developed; No acute distress Nutritional Appearance: well nourished Orientation/consciousness: patient oriented x3 HENMT Head: Yes normocephalic and Yes atraumatic Eyes General: appearance normal, both eyes and all related structures Pupils: Equal, round and reactive pupils present EOM: EOMs intact bilaterally Resp Effort & Inspection: normal respiratory effort Auscultation: clear to auscultation bilaterally Cardio Rate: regular rate Rhythm: regular rhythm Heart sounds: S1 normal heart sound present, S2 normal heart sound present, no gallops, no murmurs and no rubs Neuro General: patient oriented x3 and gait normal Cranial nerves: Yes Equal, round and reactive pupils present Psych Affect: normal affect Assessment and Plan Assessment & Plan (1) Hyperlipidemia: Code(s): E78.5 - Hyperlipidemia, unspecified Plan: Lipids?significantly?elevated?compared?with?few?months?ago. Had?been?on?atorvastatin?in?the?past. Will?recheck?in?about?a?month. Will?discuss?atorvastatin?or?other?medication?if?needed Recent?angiogram?did?not?show?any?coronary?artery?disease (2) Elevated TSH: Code(s): R79.89 - Other specified abnormal findings of blood chemistry Plan: TSH?mildly?elevated?but?lower?than?prior?check. Will?recheck?in?about?a?month (3) Left bundle branch block: Code(s): I44.7 - Left bundle-branch block, unspecified Plan: Followed?by?cardiology No?evidence?of?coronary?artery?disease Follow-up?with?Cardiology?as?recommended (4) Pancreatitis: Code(s): K85.90 - Acute pancreatitis without necrosis or infection, unspecified Plan: Recurrent?pancreatitis?and?recent?visit?to?the?emergency?department Referred?him?back?to?gastroenterology?for?ongoing?workup. Orders: Referrals Gastroenterology Referral K85.90 - Acute pancreatitis without necrosis or infection, unspecified Coding Level of Care Code Est Pt Level 4 (11767) Diagnoses Hyperlipidemia E78.5 Elevated TSH R79.89 Left bundle branch block I44.7 Pancreatitis K85.90
== END 2023-08-23 11:14 | disposition home or self-care (01) ==
PROVIDERS: PCP Family Medicine; Visit Provider Family Medicine
DX: E78.5 Hyperlipidemia, unspecified (principal); R79.89 Other specified abnormal findings of blood chemistry; I44.7 Left bundle-branch block, unspecified; K85.90 Acute pancreatitis without necrosis or infection, unspecified
CPT/HCPCS: 99214

== ENCOUNTER → 2023-09-20 08:53 | Outpatient (REF) | payer OTHER, SELFPAY ==
--- NOTE | 2023-09-20 08:57 | CA_ITS ---
Transthoracic Echocardiogram Patient (Last, First, Middle): Kiran Santillan, Gender: Male Date of : 1990 Age: 32 Procedure Date: 09/20/2023 Procedure Type: Transthoracic Echocardiogram Location: OP Height: 177.8 cm Weight: 90.72 kg BSA: 2.09 m2 Heart Rate: 58 bpm BP: 115 / 75 mmHg Cherry Picker Operator: ROSE Referring MD: Gerald Holt MD Symptoms: I44.7 - Left bundle-branch block, unspecified Study Quality: Adequate ECG Rhythm: Left bundle-branch block Conclusions: - 1. Mildly dilated LV with mildly reduced LV ejection fraction 45-50% 2. Normal cardiac valvular Doppler 3. Normal RV systolic pressure 4. Mildly dilated ascending aorta at 3.8 cm 5. No gross pericardial effusion Findings Left Ventricle Mildly increased left ventricular cavity size. There is normal left ventricular wall thickness. The left ventricular systolic function is mildly decreased. The visually estimated ejection fraction is between 45-50%. There is paradoxical septal motion consistent with a left bundle branch block. Spectral Doppler is indicative of a normal filling pattern. Peak GLS is -13.7%, which is moderately reduced. Right Ventricle Normal right ventricular cavity size and systolic function. Atria The left atrium is normal in size. There is no evidence of interatrial shunt. The right atrium is normal in size. Aortic Valve Normal aortic valve structure and function. There is no aortic valve stenosis. There is no aortic valve regurgitation. Mitral Valve Normal mitral valve structure and function. There is trace mitral valve regurgitation. There is no mitral valve stenosis. Pulmonic Valve The pulmonic valve is likely normal. There is trace pulmonic valve regurgitation. Tricuspid Valve Normal tricuspid valve structure. There is trace tricuspid valve regurgitation. The right ventricular systolic pressure is normal. The right ventricular systolic pressure is 16 mmHg. Normal right atrial pressure. There is no evidence of pulmonary hypertension. Great Vessels The pulmonary artery was not well visualized. There is mild dilatation of the ascending aorta measuring 3.80 cm. Venous The inferior vena cava is normal in size and collapses greater than 50% with inspiration. Pericardium/Pleural There is no evidence of pericardial effusion. Prior Study Comparison No prior study available for comparison. Measurements 2D Linear Measurements IVSd: 1.16 0.6-0.9/0.6-1.0 cm LVIDd: 5.52 3.9-5.3/4.2-5.9 cm LVIDd Index: 2.64 2.4-3.2/2.2-3.1 cm/m2 LVIDs: 4.44 2.0-3.6 cm LVPWd: 1.14 0.7-1.1 cm LA Diam: 3.40 2.7-3.8/3.0-4.0 cm LAIDs Index: 1.63 1.5-2.3 cm/m2 LV Mass: 322.42 67-162/88-224 g LV Mass Index: 154.27 43-95/49-115 g/m2 LVOT Diam: 2.40 3.0+(-)1.3 cm 2D Systolic Function EF 4C: 46.70 >55% EF 2C: 50.40 >55% EF BiP: 48.40 >55% Mitral Valve MV Pk E: 0.68 MV PK A: 0.52 MV Decel Time: 222.00 E/A: 1.30 E'Lateral: 5.11 E'Medial: 7.72 E/E' Med: 8.80 E/E' Lat: 13.30 PHT: 65.00 MVA PHT: 3.38 Decel [place]: 3.07 Aortic Valve AoV Pk Kam: 1.09 AoV Mn Kam: 0.87 AoV VTI: 0.23 AoV Pk Grad: 5.00 Aov Mn Grad: 3.00 LINDEN Cont.VTI: 3.59 LVOT LVOT Pk Kam: 0.91 LVOT Mn Kam: 0.68 LVOT VTI: 0.18 LVOT Pk Grad: 3.00 LVOT Mn Grad: 2.00 LVOT Diam: 2.40 LVOT Area: 4.52 Diastolic Function MV Pk E: 0.68 MV Pk A: 0.52 E/A: 1.30 E'Medial: 7.72 E/E' Med: 8.80 E' Laterial: 5.11 E/E' Lat: 13.30 Right Ventricle TAPSE (mm): 24.00 TVS' Kam: 11.00 Tricuspid Valve TR Pk Kam: 1.79 TR Pk Grad: 13.00 RA Press: 3.00 RVSP: 16.00 Great Vessels Aorta Sinus of Valsalva: 3.90 2.0-3.5 cm Ao Asc: 3.80 2.1-3.4 cm Pulmonary Valve PV Pk Kam: 0.87 Peak PV Grad: 3.00 Updated in Other Vendor System with Status of Final Rell Sen MD electronically signed on 09/21/2023 4:04:30 PM with status of Final
[2023-09-20 11:43] LABS: Alanine Aminotransferase 13 U/L (0-40); Albumin Level 4.5 g/dL (3.5-5.0); Alkaline Phosphatase 55 U/L (39-117); Anion Gap 12 (12-20); Aspartate Amino Transferase 20 U/L (5-37); Bilirubin Total 0.7 mg/dL (0.0-1.0); Blood Urea Nitrogen 20 mg/dL (9-16); Calcium 9.6 mg/dL (8.4-10.2); Carbon Dioxide 28 mmol/L (22-29); Chloride 107 mmol/L (96-108); Cholesterol 279 mg/dL (<200); Estimated Glomerular Filt Rate > 60; Glucose Fasting 87 mg/dL (60-99); HDL Cholesterol 43 mg/dL (>40); LDL Cholesterol Calculated 220 mg/dL (<100); Lipase 38 U/L (8-78); Potassium 3.7 mmol/L (3.3-5.1); Sodium 143 mmol/L (135-145); Total Protein 7.6 g/dL (6.5-8.0); Triglycerides 81 mg/dL (<150)
== END ==
LOC: HO.CARD 08:53
PROVIDERS: Absent Provider Family Medicine; PCP Family Medicine; Visit Provider Internal Medicine
DX: I44.7 Left bundle-branch block, unspecified (principal); E78.5 Hyperlipidemia, unspecified; K85.90 Acute pancreatitis without necrosis or infection, unspecified; Z00.00 Encounter for general adult medical examination without abnormal findings
CPT/HCPCS: 36415; 80053; 80061; 83690; 93306; 93356

== ENCOUNTER → 2023-09-20 08:57 | Outpatient (BNV) | payer OTHER, SELFPAY | PROVIDERS: Absent Provider Family Medicine; PCP Family Medicine; Visit Provider Internal Medicine Cardiovascular Disease | DX: I42.9 Cardiomyopathy, unspecified (principal); I44.7 Left bundle-branch block, unspecified | CPT/HCPCS: 93306; 93356 ==

== ENCOUNTER 2023-09-28 13:46 | Outpatient (AMB) | payer OTHER, SELFPAY ==
--- NOTE | 2023-09-28 13:44 | MHC.PC.OV ---
Intake Visit Reasons: f/u hyperlipidemia, elevated TSH Intake Note: Patient is following up on labs today. Allergies No Known Allergies Allergy (Verified 09/28/23 13:44) Tobacco use date assessed: 09/28/23 HPI f/u hyperlipidemia, elevated TSH HPI Details Telemedicine?appointment?to?to?follow-up?hyperlipidemia?with?cardiomyopathy. Medication?before. We?also?discussed?that?his?TSH?level?had?been?mildly?elevated?but?was?improving?and?we?could?recheck?this?with?his?next?blood?draw?in?a?couple?of?months Had?referred?patient?to?gastroenterology?for?recurrent?pancreatitis.??He?says?he?had?an?initial?appointment?but?has?not?heard?back?since. COUNTS INCLUDE 234 BEDS AT [facility] Medical History High blood pressure Acute pancreatitis Pneumonia Surgical History Hx of tonsillectomy Family History Father High blood pressure Mother High blood pressure Maternal Grandfather High blood pressure Maternal Grandmother High blood pressure Paternal Grandfather High blood pressure Paternal Grandmother High blood pressure Social History Household Members: None Housing: House Are you a primary wild animal caretaker to a significant other at home: No Do you presently have visiting nurse or other home services: No 75 years or older and lives alone: No Alcohol intake: never Patient Tobacco Use Status: Never used Tobacco e-Cigarette/Vaping Use: Never Used Special mariah needs: No service: Yes Current occupational status: employed Current occupation: [employer]. Cognitive needs: No Hearing needs: No Vision needs: No Questionnaire Thrive Questionnaire Date Thrive assessed: 08/23/23 POLLY-7 AMB Questionnaire POLLY-7 Date POLLY - 7 assessed: 08/23/23 Source: Developed by Drs. Ze Villatoro, Marnie Olsen, Tim Painter and colleagues, with an educational jase from [employer] Review of Systems Const Denies chills, Denies fatigue, Denies fever(s), Denies headache(s) and Denies weakness ENT Denies dizziness and Denies headache(s) Card Denies chest pain, Denies lightheadedness, Denies dyspnea and Denies other (Palpitations) Resp Denies cough, Denies dyspnea, Denies wheezing and Denies other ( shortness of breath) Musc Denies numbness and Denies tingling Neuro Denies dizziness, Denies headache(s), Denies numbness, Denies tingling, Denies paresthesias and Denies weakness Psych Denies anxiety and Denies depression Endo Denies fatigue Aller/Immun Denies wheezing Physical exam (Primary Care) Tobacco/Smoking Status: Tobacco use Status Tobacco use date assessed 09/28/23 09/28/23 13:45 Patient Tobacco Use Status Never used Tobacco 09/28/23 13:45 e-Cigarette/Vaping Use Never Used 09/28/23 13:45 Thrive Assessment: Date of Thrive Assessment Date Thrive assessed 08/23/23 09/28/23 13:45 Telehealth Telehealth Location of provider rendering services: practice address Location of patient: address on file Patient Identification confirmed using: Name, : Yes Telehealth method: voice only Patient verbally consented to treatment: Yes Patient verbally consented to billing insurance company: Yes Patient informed of any privacy concerns related to visit: Yes Minutes spent on Phone/Video with Pt.: 7 Assessment and Plan Assessment & Plan (1) Hyperlipidemia: Code(s): E78.5 - Hyperlipidemia, unspecified Plan: Significantly?elevated?cholesterol?levels?in?a?patient?with?cardiomyopathy. Start?atorvastatin?20?mg?daily.??Risks/benefits?discussed?with?the?patient Will?recheck?lipids?in?about?3?months (2) Elevated TSH: Code(s): R79.89 - Other specified abnormal findings of blood chemistry Plan: TSH?had?been?mildly?elevated?but?was?improving. We?can?recheck?this?with?his?next?blood?draw?and?follow-up?at?his?next?appointment (3) Pancreatitis: Code(s): K85.90 - Acute pancreatitis without necrosis or infection, unspecified Plan: Had?referred?patient?to?Gastroenterology. Patient?says?he?has?had?1?appointment?but?was?expecting?additional?appointments?with?imaging. Will?ask?the?office?to?check?on?the?status?of?that?referral Orders: Orders Free T4 (Free Thyroxine) Today E03.9 - Hypothyroidism, unspecified, R79.89 - Other specified abnormal findings of blood chemistry Lipid Panel Today E78.5 - Hyperlipidemia, unspecified, Z00.00 - Encounter for general adult medical examination without abnormal findings Thyroid Stimulating Hormone Today E03.9 - Hypothyroidism, unspecified, R79.89 - Other specified abnormal findings of blood chemistry Triiodothyronine T3 Total Today E03.9 - Hypothyroidism, unspecified, R79.89 - Other specified abnormal findings of blood chemistry Comprehensive [place]. Panel Fast Today E78.5 - Hyperlipidemia, unspecified, Z00.00 - Encounter for general adult medical examination without abnormal findings Medications: New atorvastatin 40 mg PO BEDTIME 30 tabs 3RF 30 days Coding Level of Care Code Tele Est Pt Level 2 (50438) Diagnoses Hyperlipidemia E78.5 Elevated TSH R79.89 Pancreatitis K85.90
== END 2023-09-28 17:00 ==
LOC: HO.HMGFM 13:47
PROVIDERS: PCP Family Medicine; Visit Provider Family Medicine
DX: E78.5 Hyperlipidemia, unspecified (principal); R79.89 Other specified abnormal findings of blood chemistry; K85.90 Acute pancreatitis without necrosis or infection, unspecified
CPT/HCPCS: 99212

== ENCOUNTER 2023-12-17 09:23 | Outpatient (AMB) | payer OTHER, SELFPAY ==
[2023-12-17 09:29] VITALS: BP 120/74; PULSE 71; O2SAT 98; BMI 31.0
--- NOTE | 2023-12-17 09:29 | A.OFFPC_ITS ---
Vital Signs 12/17/23 09:29 Height 5 ft 9 in Weight 210 lb BMI 31.0 BP 120/74 Blood Pressure Location Lt brachial Position Sitting Pulse 71 Pulse Source Pulse Oximeter Pulse Oximetry (%) 98 Oxygen Delivery Method Room Air Intake Visit Reasons: est/ back pain lower Intake Note: Patient is here to follow up on lower back pain, left-sided, states it started a month ago, while he was working, he heard a pop and has not felt the same since. He states he was not able to get his labs done. Allergies No Known Allergies Allergy (Verified 12/17/23 09:31) Tobacco use date assessed: 09/28/23 Dental Screening Dental Screen Date: 08/23/23 HPI est/ back pain lower HPI Details 33 y/o male presents today with complain ts of low back pain. Pt states pain started x1 month ago while at work.He works and is currently on light duty. He states he had felt a pop and had been unable to relieve the pressure since. He reports shooting pain that goes down to his L leg. Hx of hyperlipidemia with cardiomyopathy. No recent labs to review for his lipids. He has been taking artovastatin 40mg as prescribed. HPI Comments History of Present Illness Details Documentation assistance for Davin Gallegos MD, was provided by Arpan Rajan, Staff Internist Office Based Only on 12/17/2023 at 9:51 AM EST. I, Dr. Gallegos, have read, observed, and verified documentation. [facility] Medical History High blood pressure Acute pancreatitis Pneumonia Surgical History Hx of tonsillectomy Family History Father High blood pressure Mother High blood pressure Maternal Grandfather High blood pressure Maternal Grandmother High blood pressure Paternal Grandfather High blood pressure Paternal Grandmother High blood pressure Social History Household Members: None Housing: House Are you a primary childcare aide to a significant other at home: No Do you presently have visiting nurse or other home services: No 75 years or older and lives alone: No Alcohol intake: never Patient Tobacco Use Status: Never used Tobacco e-Cigarette/Vaping Use: Never Used Special mariah needs: No service: Yes Current occupational status: employed Current occupation: [employer]. Cognitive needs: No Hearing needs: No Vision needs: No Questionnaire Thrive Questionnaire Date Thrive assessed: 08/23/23 POLLY-7 AMB Questionnaire POLLY-7 Date POLLY - 7 assessed: 08/23/23 Source: Developed by Drs. Ze Villatoro, Marnie Olsen, Tim Painter and colleagues, with an educational jase from [employer]. Review of Systems Const Denies chills, Denies fatigue, Denies fever(s), Denies headache(s) and Denies weakness ENT Denies dizziness and Denies headache(s) Card Denies dyspnea Resp Denies cough, Denies dyspnea, Denies wheezing and Denies other (shortness of breath) Musc Reports back pain, Denies numbness and Denies tingling Neuro Denies dizziness, Denies headache(s), Denies numbness, Denies tingling and Denies weakness Psych Denies anxiety and Denies depression Endo Denies fatigue Aller/Immun Denies wheezing Physical exam (Primary Care) Vital Signs: Last Vital Signs Pulse 71 12/17/23 09:29 BP 120/74 12/17/23 09:29 Pulse Ox 98 12/17/23 09:29 Oxygen Delivery Method Room Air 12/17/23 09:29 BMI result Body Mass Index 31.0 Tobacco/Smoking Status: Tobacco use Status Tobacco use date assessed 09/28/23 12/17/23 09:31 Patient Tobacco Use Status Never used Tobacco 12/17/23 09:31 e-Cigarette/Vaping Use Never Used 12/17/23 09:31 Thrive Assessment: Date of Thrive Assessment Date Thrive assessed 08/23/23 12/17/23 09:31 Const General: well developed; No acute distress Nutritional Appearance: well nourished Orientation/consciousness: patient oriented x3 HENMT Head: Yes normocephalic and Yes atraumatic Eyes General: appearance normal, both eyes and all related structures Pupils: Equal, round and reactive pupils present EOM: EOMs intact bilaterally Resp Effort & Inspection: normal respiratory effort Back/Spine/Pelvis Other: Low back pain, rather focal area, just to the L of center around L5 region with pain that occasionally shoots down his leg Some decreased range of motion particularly with flexion of the waist Neuro General: patient oriented x3 and gait normal Cranial nerves: Yes Equal, round and reactive pupils present Psych Affect: normal affect Assessment and Plan Assessment & Plan (1) Low back pain: Code(s): M54.50 - Low back pain, unspecified Plan: Low?back?pain?with?radiation?into?left?lower?extremity Patient?is?able?to?walk?without?difficulty?but?does?have?decreased?range?of?daisy on,?particularly?flexion?at?the?waist Start?physical?therapy Start?meloxicam?and?can?use?cyclobenzaprine?p.r.n. Will?check?x-ray?of?lumbar?spine He?is?on?light?duty?at?work?and?I?encouraged?this?until?our?next?visit?in?about? 3?weeks?to?review If?not?improving?would?consider?advanced?imaging?and/or?referral?to?Ortho. (2) Hyperlipidemia: Code(s): E78.5 - Hyperlipidemia, unspecified Plan: Significant?hyperlipidemia?with?history?of?cardiomyopathy Started?him?on?atorvastatin?40?mg?daily. He?has?not?gotten?his?labs?drawn?yet?but?will?do?so?prior?to?upcoming?visit?in?3 ?weeks. (3) Cardiomyopathy: Code(s): I42.9 - Cardiomyopathy, unspecified Plan: Stable?and?we?have?started?atorvastatin?for?hyperlipidemia He?has?a?follow-up?appointment?with?cardiology?scheduled. Orders: Orders PT Evaluation and Treatment Today M54.50 - Low back pain, unspecified XR lumbar spine 2-3V Today M54.50 - Low back pain, unspecified Medications: New cyclobenzaprine 10 mg PO TID 10 days PRN 30 tabs 0RF muscle spasm meloxicam 15 mg PO DAILY 30 days 30 tabs 2RF Coding Level of Care Code Est Pt Level 4 (05358) Diagnoses Low back pain M54.50 Hyperlipidemia E78.5 Cardiomyopathy I42.9
== END 2023-12-17 10:00 | disposition home or self-care (01) ==
PROVIDERS: PCP Family Medicine; Visit Provider Family Medicine
DX: M54.50 Low back pain, unspecified (principal); E78.5 Hyperlipidemia, unspecified; I42.9 Cardiomyopathy, unspecified
CPT/HCPCS: 99214

== ENCOUNTER 2023-12-18 09:20 | Outpatient (REF) | payer OTHER, SELFPAY ==
--- NOTE | ~2023-12-18 | XR_ITS ---
EXAMINATION: XR LUMBOSACRAL SPINE CLINICAL INFORMATION: Low back pain unspecified. COMPARISON: CT abdomen and pelvis of 05/19/2023. TECHNIQUE: 3 views of the lumbosacral spine. FINDINGS: There is slight rotation of the lumbar spine. Straightening of the normal lumbar lordosis. Bilateral sacroiliac joints are maintained. Facet arthritis in the lower lumbar spine. Possible spondylolysis at L5-S1. Spondylosis with moderate loss of disc space height at L4-L5. XR/XR lumbar spine 2-3V IMPRESSION: 1. Facet arthritis in the lower lumbar spine. Possible spondylolysis at L5-S1. 2. Spondylosis with moderate loss of disc space height at L4-L5.
== END 2023-12-18 09:21 | disposition home or self-care (01) ==
LOC: HO.XRAY 09:20
PROVIDERS: PCP Family Medicine; Visit Provider Family Medicine
DX: M54.50 Low back pain, unspecified (principal)
CPT/HCPCS: 72100

== ENCOUNTER 2024-01-03 08:52 | Outpatient (REF) | payer OTHER, SELFPAY ==
[2024-01-03 13:01] LABS: Alanine Aminotransferase 24 U/L (0-40); Albumin Level 4.3 g/dL (3.5-5.0); Alkaline Phosphatase 59 U/L (39-117); Anion Gap 11 (12-20); Aspartate Amino Transferase 30 U/L (5-37); Bilirubin Total 0.6 mg/dL (0.0-1.0); Blood Urea Nitrogen 23 mg/dL (9-16); Calcium 9.6 mg/dL (8.4-10.2); Carbon Dioxide 27 mmol/L (22-29); Chloride 107 mmol/L (96-108); Cholesterol 203 mg/dL (<200); Estimated Glomerular Filt Rate > 60; Glucose Fasting 92 mg/dL (60-99); HDL Cholesterol 46 mg/dL (>40); LDL Cholesterol Calculated 140 mg/dL (<100); Potassium 4.3 mmol/L (3.3-5.1); Sodium 141 mmol/L (135-145); Total Protein 7.3 g/dL (6.5-8.0); Triglycerides 85 mg/dL (<150)
[2024-01-03 13:24] LABS: Free T4 (Free Thyroxine) 0.66 ng/dL (0.71-1.85); Thyroid Stimulating Hormone 6.69 uIU/mL (0.32-4.0)
[2024-01-04 17:33] LABS: Triiodothyronine T3 Total 93 ng/dL (76-181)
== END 2024-01-03 08:53 | disposition home or self-care (01) ==
LOC: HO.WFDLDS 08:52
PROVIDERS: Visit Provider Family Medicine
DX: Z00.00 Encounter for general adult medical examination without abnormal findings (principal); E78.5 Hyperlipidemia, unspecified; R79.89 Other specified abnormal findings of blood chemistry; E03.9 Hypothyroidism, unspecified
CPT/HCPCS: 36415; 80053; 80061; 84439; 84443; 84480

== ENCOUNTER 2024-01-05 14:32 | Outpatient (AMB) | payer OTHER, SELFPAY ==
--- NOTE | 2024-01-05 14:51 | MHC.PC.OV ---
Vital Signs 01/05/24 14:54 Height 5 ft 9 in Weight 212 lb 4 oz BMI 31.3 BP 116/62 Blood Pressure Location Lt brachial Position Sitting Pulse 66 Pulse Source Pulse Oximeter Pulse Oximetry (%) 97 Oxygen Delivery Method Room Air Intake Visit Reasons: f/u low back pain, HLD Intake Note: Patient is here to follow up on low back pain and HLD cholesterol Allergies No Known Allergies Allergy (Verified 01/05/24 14:56) Medication List - Last Reconciled 01/05/24 by Davin Gallegos MD atorvastatin 80 mg PO BEDTIME 90 days cyclobenzaprine 10 mg PO TID PRN 10 days levothyroxine 50 mcg PO DAILY 90 days meloxicam 15 mg PO DAILY 30 days Tobacco use date assessed: 09/28/23 Dental Screening Dental Screen Date: 08/23/23 HPI f/u low back pain, HLD HPI Details 33 y/o male presents to f/u low back pain, HLD. Labs were drawn 01/03/24. Reviewed labs with pt. Triglycerides 85. TC 203. LDL improved from 220 to 140. He is on artovastatin 40mg. He reports he is tolerating this medication well. HDL 46. TSH worsened from 4.18 to 6.69. [facility] Medical History High blood pressure Acute pancreatitis Pneumonia Surgical History Hx of tonsillectomy Family History Father High blood pressure Mother High blood pressure Maternal Grandfather High blood pressure Maternal Grandmother High blood pressure Paternal Grandfather High blood pressure Paternal Grandmother High blood pressure Social History Household Members: None Housing: House Are you a primary career development consultant to a significant other at home: No Do you presently have visiting nurse or other home services: No 75 years or older and lives alone: No Alcohol intake: never Patient Tobacco Use Status: Never used Tobacco e-Cigarette/Vaping Use: Never Used Special mariah needs: No service: Yes Current occupational status: employed Current occupation: [employer]. Cognitive needs: No Hearing needs: No Vision needs: No Questionnaire Thrive Questionnaire Date Thrive assessed: 08/23/23 POLLY-7 AMB Questionnaire POLLY-7 Date POLLY - 7 assessed: 08/23/23 Source: Developed by Drs. Ze Villatoro, Marnie Olsen, Tim Painter and colleagues, with an educational jase from [employer]. Review of Systems Const Denies chills, Denies fatigue, Denies fever(s), Denies headache(s) and Denies weakness ENT Denies dizziness and Denies headache(s) Card Denies dyspnea Resp Denies cough, Denies dyspnea, Denies wheezing and Denies other (shortness of breath) Musc Reports back pain, Denies numbness and Denies tingling Neuro Denies dizziness, Denies headache(s), Denies numbness, Denies tingling and Denies weakness Psych Denies anxiety and Denies depression Endo Denies fatigue Aller/Immun Denies wheezing Physical exam (Primary Care) Vital Signs: Last Vital Signs Pulse 66 01/05/24 14:54 BP 116/62 01/05/24 14:54 Pulse Ox 97 01/05/24 14:54 Oxygen Delivery Method Room Air 01/05/24 14:54 BMI result Body Mass Index 31.3 Tobacco/Smoking Status: Tobacco use Status Tobacco use date assessed 09/28/23 01/05/24 14:52 Patient Tobacco Use Status Never used Tobacco 01/05/24 14:52 e-Cigarette/Vaping Use Never Used 01/05/24 14:52 Thrive Assessment: Date of Thrive Assessment Date Thrive assessed 08/23/23 01/05/24 14:52 Const General: well developed; No acute distress Nutritional Appearance: well nourished Orientation/consciousness: patient oriented x3 [facility] Head: Yes normocephalic and Yes atraumatic Eyes General: appearance normal, both eyes and all related structures Pupils: Equal, round and reactive pupils present EOM: EOMs intact bilaterally Resp Effort & Inspection: normal respiratory effort Neuro General: patient oriented x3 and gait normal Cranial nerves: Yes Equal, round and reactive pupils present Psych Affect: normal affect Assessment and Plan Assessment & Plan (1) Hyperlipidemia: Code(s): E78.5 - Hyperlipidemia, unspecified Plan: Significantly?improved?LDL?cholesterol?but?still?Will?above?goal Will?increase?atorvastatin?from?40?mg?daily?to?80?mg?daily?as?he?is?tolerating?it?well. Will?recheck?at?next?visit (2) Hypothyroidism: Code(s): E03.9 - Hypothyroidism, unspecified Plan: Consistently?elevated?TSH?and?now?is?above?6.0. Free?T4?is?mildly?low?as?well. Starting?levothyroxine?50?mcg?daily Will?recheck?prior?to?next?visit (3) Low back pain: Code(s): M54.50 - Low back pain, unspecified Plan: Ongoing?low?back?pain.??Meloxicam?did?help?some He?has?not?been?able?to?get?physical?therapy?scheduled - will?see?if?he?can?get?scheduled?at?[place]?core?PT X-ray?shows?some?spondylolysis?and?disc?height?loss Referring?him?to?Ortho?as?well. Can?continue?meloxicam Orders: Orders Lipid Panel Today Z00.00 - Encounter for general adult medical examination without abnormal findings Thyroid Stimulating Hormone Today E03.9 - Hypothyroidism, unspecified Triiodothyronine T3 Total Today E03.9 - Hypothyroidism, unspecified Free T4 (Free Thyroxine) Today E03.9 - Hypothyroidism, unspecified Comprehensive [place]. Panel Fast Today Z00.00 - Encounter for general adult medical examination without abnormal findings Referrals Orthopedics Referral M54.50 - Low back pain, unspecified Medications: New levothyroxine 50 mcg PO DAILY 90 days 90 tabs 2RF Changed From atorvastatin 40 mg PO BEDTIME 30 days 30 tabs 3RF To atorvastatin 80 mg PO BEDTIME 90 days 90 tabs 3RF Refilled meloxicam 15 mg PO DAILY 30 days 30 tabs 2RF Coding Level of Care Code Est Pt Level 4 (22456) Diagnoses Hyperlipidemia E78.5 Hypothyroidism E03.9 Low back pain M54.50
[2024-01-05 14:54] VITALS: BP 116/62; PULSE 66; O2SAT 97; BMI 31.3
== END 2024-01-05 15:19 | disposition home or self-care (01) ==
PROVIDERS: PCP Family Medicine; Visit Provider Family Medicine
DX: E78.5 Hyperlipidemia, unspecified (principal); E03.9 Hypothyroidism, unspecified; M54.50 Low back pain, unspecified
CPT/HCPCS: 99214

== ENCOUNTER 2024-02-09 08:00 | Outpatient (RCR) | payer OTHER, SELFPAY | END 2024-08-04 09:24 | disposition home or self-care (01) | LOC: HO.PTWFD 08:00 | PROVIDERS: PCP Family Medicine; Visit Provider Family Medicine | DX: M54.50 Low back pain, unspecified (principal) | CPT/HCPCS: 97110; 97140; 97161; 97535 ==

== ENCOUNTER 2024-03-14 08:43 | Outpatient (REF) | payer OTHER, SELFPAY ==
[2024-03-14 15:25] LABS: Alanine Aminotransferase 21 U/L (0-40); Albumin Level 4.3 g/dL (3.5-5.0); Alkaline Phosphatase 57 U/L (39-117); Anion Gap 10 (12-20); Aspartate Amino Transferase 28 U/L (5-37); Bilirubin Total 0.9 mg/dL (0.0-1.0); Blood Urea Nitrogen 16 mg/dL (9-16); Calcium 9.4 mg/dL (8.4-10.2); Carbon Dioxide 29 mmol/L (22-29); Chloride 106 mmol/L (96-108); Cholesterol 184 mg/dL (<200); Estimated Glomerular Filt Rate > 60; Glucose Fasting 79 mg/dL (60-99); HDL Cholesterol 46 mg/dL (>40); LDL Cholesterol Calculated 120 mg/dL (<100); Potassium 4.1 mmol/L (3.3-5.1); Sodium 141 mmol/L (135-145); Triglycerides 94 mg/dL (<150)
[2024-03-14 15:43] LABS: Free T4 (Free Thyroxine) 0.79 ng/dL (0.71-1.85); Thyroid Stimulating Hormone 4.55 uIU/mL (0.32-4.0)
[2024-03-15 14:43] LABS: Triiodothyronine T3 Total 87 ng/dL (76-181)
== END 2024-03-14 08:44 | disposition home or self-care (01) ==
LOC: HO.WFDLDS 08:43
PROVIDERS: Visit Provider Family Medicine
DX: Z00.00 Encounter for general adult medical examination without abnormal findings (principal); E03.9 Hypothyroidism, unspecified
CPT/HCPCS: 36415; 80053; 80061; 84439; 84443; 84480

== ENCOUNTER 2024-03-16 10:30 | Outpatient (AMB) | payer OTHER, SELFPAY ==
--- NOTE | 2024-03-16 10:32 | A.OFFPC_ITS ---
Vital Signs 03/16/24 10:33 Height 5 ft 9 in Weight 214 lb 4 oz BMI 31.6 BP 120/74 Blood Pressure Location Lt brachial Position Sitting Respiration 16 Pulse 76 Pulse Source Pulse Oximeter Temp 97.3 F Temp Source Tympanic Pulse Oximetry (%) 97 Oxygen Delivery Method Room Air Intake Visit Reasons: f/u HLD, hypothyroidism Intake Note: follow up for lab review for HLD and hypothyroidism Allergies No Known Allergies Allergy (Verified 03/16/24 10:33) Medication List - Last Reconciled 03/16/24 by Davin Gallegos MD atorvastatin 80 mg PO BEDTIME 90 days cyclobenzaprine 10 mg PO TID PRN 10 days levothyroxine 50 mcg PO DAILY 90 days meloxicam 15 mg PO DAILY 30 days Tobacco use date assessed: 09/28/23 Dental Screening Dental Screen Date: 08/23/23 HPI f/u HLD, hypothyroidism HPI Details 33 y/o male presents to f/u hyperlipidem ia, hypothyroidism. Had increased artovastatin to 80mg daily. Had started him on levothyroxine 50mcg daily. Labs drawn 03/14/24. Reviewed labs with pt. Triglycerides 94. TC 184. LDL improved from 140 to 120. HDL 46. TSH improved from 6.69 to 4.55 uIU/mL. He notes he has mostly been taking his medications as prescribed but notes he has missed his meds a few times. He reports PT went well for his back pain but notes it continues to bother him. Had followed up with [facility] for this and he reports they plan to continue with injection therapy. HPI Comments History of Present Illness Details Documentation assistance for Davin Gallegos MD, was provided by Arpan Rajan, Disability Attorney on 03/16/2024 at 10:44 AM EST. Can, Dr. Gallegos, have read, observed, and verified documentation. PFSH Medical History High blood pressure Acute pancreatitis Pneumonia Surgical History Hx of tonsillectomy Family History Father High blood pressure Mother High blood pressure Maternal Grandfather High blood pressure Maternal Grandmother High blood pressure Paternal Grandfather High blood pressure Paternal Grandmother High blood pressure Social History (Reviewed 01/05/24 @ 14:56 by Mara Moore [facility]) Household Members: None Housing: House Are you a primary critical care technician to a significant other at home: No Do you presently have visiting nurse or other home services: No 75 years or older and lives alone: No Alcohol intake: never Patient Tobacco Use Status: Never used Tobacco e-Cigarette/Vaping Use: Never Used Special mariah needs: No service: Yes Current occupational status: employed Current occupation: [employer]. Cognitive needs: No Hearing needs: No Vision needs: No Questionnaire Thrive Questionnaire Date Thrive assessed: 08/23/23 POLLY-7 AMB Questionnaire POLLY-7 Date POLLY - 7 assessed: 08/23/23 Source: Developed by Drs. Ze Villatoro, Marnie Olsen, Tim Painter and colleagues, with an educational jase from [employer]. Review of Systems Const Denies chills, Denies fatigue, Denies fever(s), Denies headache(s) and Denies weakness ENT Denies dizziness and Denies headache(s) Card Denies dyspnea Resp Denies cough, Denies dyspnea, Denies wheezing and Denies other (shortness of mari ath) Musc Denies numbness and Denies tingling Neuro Denies dizziness, Denies headache(s), Denies numbness, Denies tingling and Denies weakness Psych Denies anxiety and Denies depression Endo Denies fatigue Aller/Immun Denies wheezing Physical exam (Primary Care) Vital Signs: Last Vital Signs Temp 97.3 F 03/16/24 10:33 Pulse 76 03/16/24 10:33 Resp 16 03/16/24 10:33 BP 120/74 03/16/24 10:33 Pulse Ox 97 03/16/24 10:33 Oxygen Delivery Method Room Air 03/16/24 10:33 BMI result Body Mass Index 31.6 Tobacco/Smoking Status: Tobacco use Status Tobacco use date assessed 09/28/23 03/16/24 10:36 Patient Tobacco Use Status Never used Tobacco 03/16/24 10:36 e-Cigarette/Vaping Use Never Used 03/16/24 10:36 Thrive Assessment: Date of Thrive Assessment Date Thrive assessed 08/23/23 03/16/24 10:36 Const General: well developed; No acute distress Nutritional Appearance: well nourished Orientation/consciousness: patient oriented x3 HENMT Head: Yes normocephalic and Yes atraumatic Eyes General: appearance normal, both eyes and all related structures Pupils: Equal, round and reactive pupils present EOM: EOMs intact bilaterally Resp Effort & Inspection: normal respiratory effort Neuro General: patient oriented x3 and gait normal Cranial nerves: Yes Equal, round and reactive pupils present Psych Affect: normal affect Assessment and Plan Assessment & Plan (1) Hyperlipidemia: Code(s): E78.5 - Hyperlipidemia, unspecified Plan: Ongoing?improvement?with?LDL?cholesterol?on?atorvastatin?80?mg?daily Will?switch?to?high-dose?Crestor to?try?to?get?him?to?a?goal?of?less?than?100?for?LDL (2) Hypothyroidism: Code(s): E03.9 - Hypothyroidism, unspecified Plan: Had?started?patient?on?levothyroxine?50?mcg?daily?and?thy roid?hormone?levels?are?improved?but?TSH?is?still?slightly?above?4.0 No?change?to?his?medication?regimen?today?but?I?did?encourage?consistent?use?of? medication?and?he?can?try?taking?his?medication?on?an?empty?stomach Will?recheck?in?a?few?months (3) Low back pain: Code(s): M54.50 - Low back pain, unspecified Plan: Back?pain?is?mildly?improved?with?physical?therapy?and?patient?has?seen?ortho Plan?is?injection?therapy?and?he?has?this?scheduled. Follow-up?with?new?[facility]?as?recommended Orders: Orders Free T4 (Free Thyroxine) Today E03.9 - Hypothyroidism, unspecified Triiodothyronine T3 Total Today E03.9 - Hypothyroidism, unspecified Thyroid Stimulating Hormone Today E03.9 - Hypothyroidism, unspecified Lipid Panel Today Z00.00 - Encounter for general adult medical examination without abnormal findings Comprehensive [place]. Panel Fast Today Z00.00 - Encounter for general adult medical examination without abnormal findings Medications: New rosuvastatin 40 mg PO DAILY 90 days 90 tabs 3RF Discontinued atorvastatin Discontinued Reason: Doctor's Order 80 mg PO BEDTIME 90 days 90 tabs 3RF Coding Level of Care Code Est Pt Level 3 (20691) Diagnoses Hyperlipidemia E78.5 Hypothyroidism E03.9 Low back pain M54.50
[2024-03-16 10:33] VITALS: BP 120/74; PULSE 76; RESP 16; TEMP 36.3; O2SAT 97; BMI 31.6
== END 2024-03-16 10:53 | disposition home or self-care (01) ==
PROVIDERS: PCP Family Medicine; Visit Provider Family Medicine
DX: E78.5 Hyperlipidemia, unspecified (principal); E03.9 Hypothyroidism, unspecified; M54.50 Low back pain, unspecified
CPT/HCPCS: 99213

== ENCOUNTER 2024-06-13 09:32 | Outpatient (REF) | payer OTHER, SELFPAY ==
[2024-06-13 12:17] LABS: Alanine Aminotransferase 28 U/L (0-40); Albumin Level 4.3 g/dL (3.5-5.0); Alkaline Phosphatase 60 U/L (39-117); Anion Gap 9 (12-20); Aspartate Amino Transferase 29 U/L (5-37); Bilirubin Total 0.6 mg/dL (0.0-1.0); Blood Urea Nitrogen 16 mg/dL (9-16); Calcium 9.1 mg/dL (8.4-10.2); Carbon Dioxide 28 mmol/L (22-29); Chloride 107 mmol/L (96-108); Cholesterol 166 mg/dL (<200); Estimated Glomerular Filt Rate > 60; Glucose Fasting 94 mg/dL (60-99); HDL Cholesterol 49 mg/dL (>40); LDL Cholesterol Calculated 96 mg/dL (<100); Potassium 3.8 mmol/L (3.3-5.1); Sodium 140 mmol/L (135-145); Total Protein 7.1 g/dL (6.5-8.0); Triglycerides 109 mg/dL (<150)
[2024-06-13 12:23] LABS: Free T4 (Free Thyroxine) 0.92 ng/dL (0.71-1.85); Thyroid Stimulating Hormone 6.56 uIU/mL (0.32-4.0)
[2024-06-15 03:49] LABS: Triiodothyronine T3 Total 68 ng/dL (76-181)
== END 2024-06-13 09:33 | disposition home or self-care (01) ==
LOC: HO.WFDLDS 09:32
PROVIDERS: Visit Provider Family Medicine
DX: Z00.00 Encounter for general adult medical examination without abnormal findings (principal); E03.9 Hypothyroidism, unspecified
CPT/HCPCS: 36415; 80053; 80061; 84439; 84443; 84480

== ENCOUNTER 2024-06-15 08:47 | Outpatient (AMB) | payer OTHER, SELFPAY ==
--- NOTE | 2024-06-15 08:57 | MHC.PC.OV ---
Vital Signs 06/15/24 09:00 Height 5 ft 9 in Weight 221 lb 4 oz BMI 32.7 BP 106/60 Blood Pressure Location Rt brachial Position Sitting Respiration 14 Pulse 69 Pulse Source Pulse Oximeter Temp 97.5 F Temp Source Oral Pulse Oximetry (%) 97 Oxygen Delivery Method Room Air Intake Visit Reasons: f/u HLD, hypothyroidism Intake Note: f/u labs Allergies No Known Allergies Allergy (Verified 06/15/24 08:59) Medication List - Last Reconciled 06/15/24 by Davin Gallegos MD cyclobenzaprine 10 mg PO TID PRN 10 days levothyroxine 75 mcg PO DAILY 90 days meloxicam 15 mg PO DAILY 30 days rosuvastatin 40 mg PO DAILY 90 days Tobacco use date assessed: 09/28/23 Dental Screening Dental Screen Date: 08/23/23 HPI f/u HLD, hypothyroidism HPI Details 33 y/o male presents to f/u HLD, hypothyroidism. Labs drawn 06/13/24. Reviewed labs with pt. TSH worsened from 4.55 to 6.56. Free T4 0.92. Total T3 68. Triglycerides 109. TC 166. LDL 96. HDL 49. He is on rosuvastatin 40mg daily. Notes he had f/u with [facility] for his back and had gotten his shots. Shots have helped significantly per pt. [facility] Medical History High blood pressure Acute pancreatitis Pneumonia Surgical History Hx of tonsillectomy Family History Father High blood pressure Mother High blood pressure Maternal Grandfather High blood pressure Maternal Grandmother High blood pressure Paternal Grandfather High blood pressure Paternal Grandmother High blood pressure Social History Household Members: None Housing: House Are you a primary senior care manager to a significant other at home: No Do you presently have visiting nurse or other home services: No 75 years or older and lives alone: No Alcohol intake: never Patient Tobacco Use Status: Never used Tobacco e-Cigarette/Vaping Use: Never Used Special mariah needs: No service: Yes Current occupational status: employed Current occupation: [employer]. Cognitive needs: No Hearing needs: No Vision needs: No Questionnaire PHQ-9 Over the last 2 weeks, how often have you been bothered by any of the following problems? 1. Little interest or pleasure in doing things: not at all 2. Feeling down, depressed, or hopeless: not at all 3. Trouble falling or staying asleep, or sleeping too much: not at all 4. Feeling tired or having little energy: not at all 5. Poor appetite or overeating: not at all 6. Feeling bad about yourself - or that you are a failure or have let yourself or your family down: not at all 7. Trouble concentrating on things, such as reading the newspaper or watching television: not at all 8. Moving or speaking so slowly that other people could have noticed. Or the opposite - being so fidgety or restless that you have been moving around a lot more than usual: not at all 9. Thoughts that you would be better off or of hurting yourself in some way: not at all Total score: 0 Source: Developed by Drs. Ze Villatoro, Marnie Olsen, Tim Painter and colleagues, with an educational jase from [employer]. Thrive Questionnaire Date Thrive assessed: 08/23/23 I am a: Patient What is your living situation today?: I have a steady place to live Within the past 12 months, did the food you bought not last and you didn't have the money to get more?: Never true Within the past 12 months, did you worry whether your food would run out before you got money to buy more?: Never true Do you have trouble paying for medicines?: No Do you have trouble getting transportation to medical appointments?: No Do you have trouble paying your heating and electricity bill?: No Do you have trouble taking care of your child, family member or friend?: No Do you have trouble with day-to-day activities such as bathing, preparing meals, shopping, managing finances, etc.?: No Are you currently unemployed and looking for a job?: No Are you interested in more education?: No Please select the resources that you would like help with: None Currently or been in a relationship where the following occur: No concerns reported THRIVE Score: 0 AUDIT C Alcohol Use Questionnaire (AUDIT-C) 1. How often do you have a drink containing alcohol?: Never Total Score: 0 POLLY-7 AMB Questionnaire POLLY-7 Date POLLY - 7 assessed: 08/23/23 Feeling nervous, anxious, or on edge: 0 = Not at all Not being able to stop or control worryin = Not at all Worrying too much about different things: 0 = Not at all Trouble relaxin = Not at all Being so restless that it is hard to sit still: 0 = Not at all Becoming easily annoyed or irritable: 0 = Not at all Feeling afraid as if something awful might happen: 0 = Not at all Total POLLY-7 score (0-4 normal; 5-9 mild; 10-14 moderate; 15-21 severe): 0 Source: Developed by Drs. Ze Villatoro, Marnie Olsen, Tim Painter and colleagues, with an educational jase from [employer]. Review of Systems Const Denies chills, Denies fatigue, Denies fever(s), Denies headache(s) and Denies weakness ENT Denies dizziness and Denies headache(s) Card Denies dyspnea Resp Denies cough, Denies dyspnea, Denies wheezing and Denies other (shortness of breath) Musc Denies numbness and Denies tingling Neuro Denies dizziness, Denies headache(s), Denies numbness, Denies tingling and Denies weakness Psych Denies anxiety and Denies depression Endo Denies fatigue Aller/Immun Denies wheezing Physical exam (Primary Care) Vital Signs: Last Vital Signs Temp 97.5 F 06/15/24 09:00 Pulse 69 06/15/24 09:00 Resp 14 06/15/24 09:00 BP 106/60 06/15/24 09:00 Pulse Ox 97 06/15/24 09:00 Oxygen Delivery Method Room Air 06/15/24 09:00 BMI result Body Mass Index 32.7 Tobacco/Smoking Status: Tobacco use Status Tobacco use date assessed 09/28/23 06/15/24 08:57 Patient Tobacco Use Status Never used Tobacco 06/15/24 08:57 e-Cigarette/Vaping Use Never Used 06/15/24 08:57 PHQ-9: PHQ-9 Score PHQ-9: Total score 0 06/15/24 09:03 Thrive Assessment: Date of Thrive Assessment Date Thrive assessed 08/23/23 06/15/24 08:57 Currently or been in a relationship where the following occur: No concerns reported Const General: well developed; No acute distress Nutritional Appearance: well nourished Orientation/consciousness: patient oriented x3 HEN[facility] Head: Yes normocephalic and Yes atraumatic Eyes General: appearance normal, both eyes and all related structures Pupils: Equal, round and reactive pupils present EOM: EOMs intact bilaterally Resp Effort & Inspection: normal respiratory effort Neuro General: patient oriented x3 and gait normal Cranial nerves: Yes Equal, round and reactive pupils present Psych Affect: normal affect Coding Level of Care Code Est Pt Level 4 (24837) Diagnoses Elevated LDL cholesterol level E78.00 Hypothyroidism E03.9 Low back pain M54.50 Assessment & Plan Assessment & Plan (1) Elevated LDL cholesterol level: Code(s): E78.00 - Pure hypercholesterolemia, unspecified Category: Medical Plan: Cholesterol?had?been?improving?with?atorvastatin?but?was?still?will?above?goal.??Had?switched?to?rosuvastatin?last visit. Lipid?levels?all?within?normal?range?now. Continue?current?medication Encouraged?diet?lower?in?saturated?fats?and?cholesterol.??Encouraged?weight?loss (2) Hypothyroidism: Code(s): E03.9 - Hypothyroidism, unspecified Category: Medical Plan: TSH?is?elevated?and?T3?is?low?at?recent?lab?check Had?sent?a?script?for?an?increase?in?levothyroxine?from?50?mcg?daily?to?75?mcg?daily?patient?has?received?started. Will?recheck?in?6-8?weeks (3) Low back pain: Code(s): M54.50 - Low back pain, unspecified Category: Medical Plan: Patient?was?sent?to?[facility]?and?given?a?physical?therapy?regimen?and?recently?had?injection?therapy?about?3?weeks?ago. He?says?he?is?much?improved?essentially?pain-free. He?says?he?continues?to?do?the?exercises?he?learned?in?physical?therapy?and?I?encouraged?this Orders: Orders Free T4 (Free Thyroxine) Today E03.9 - Hypothyroidism, unspecified Thyroid Stimulating Hormone Today E03.9 - Hypothyroidism, unspecified Triiodothyronine T3 Total Today E03.9 - Hypothyroidism, unspecified Basic Metabolic Panel Today E03.9 - Hypothyroidism, unspecified, Z00.00 - Encounter for general adult medical examination without abnormal findings
[2024-06-15 09:00] VITALS: BP 106/60; PULSE 69; RESP 14; TEMP 36.4; O2SAT 97; BMI 32.7
== END 2024-06-15 09:11 | disposition home or self-care (01) ==
PROVIDERS: PCP Family Medicine; Visit Provider Family Medicine
DX: E78.00 Pure hypercholesterolemia, unspecified (principal); E03.9 Hypothyroidism, unspecified; M54.50 Low back pain, unspecified

== ENCOUNTER → 2024-06-15 08:47 | Outpatient (BNVA) | payer OTHER, SELFPAY | PROVIDERS: PCP Family Medicine; Visit Provider Family Medicine | DX: E03.9 Hypothyroidism, unspecified (principal) | CPT/HCPCS: 96127; 99212 ==

== ENCOUNTER 2024-08-14 09:25 | Outpatient (REF) | payer OTHER, SELFPAY ==
--- OUTSIDE RECORDS SUMMARY | 2024-08-14 09:52 | XMS_ITS | Clinical Summary ---
Author Organization [facility] Address [address] [place] [id number] Phone Care Team Providers Care Business Management Intern Name Role Phone Ze Calles MD Primary Care Provider [phone] Immunizations Name Administration Dates Next Due DTaP 11/28/1996, 4,05/28/1992,03/25,01/25/1992 Hep B, ped/adol 02/27/1993,01/25/1992,1991 Hib (PRP-T) 02/27/1993, 2,03/25/1992,01/24 IPV 11/28/1996, 4,03/25/1992,01/24 MMR 11/28/1996,02/27/1993 Meningococcal Conj (Menactra) MCV4P 11/16/2008 Td (adult) (Tenivac), 5 Lf t etanus toxoid, PF, adsorbed 12/06/2001 Tdap 11/16/2008 Varicella 11/16/2008,12/06/2001 Family History Relation Name Status Comments Father Alive healthy Maternal Grandfather aneuris m Maternal Grandmother Alive hyperli pidemia, hypertension Mother Alive healthy Social History Tobacco Use Types Packs/Day Years Used Date Smoking Tobacco: Never Assessed Sex and Gender Information Value Date Recorded Sex Assigned at Not on file Legal Sex Male 6:09 PM EDT Gender Identity Not on file Sexual Orientation Not on file Last Filed Vital Signs Vital Sign Reading Time Taken Comments Blood Pressure 124/78 12/18/2009 12:00 AM EDT Pulse - - Temperature - - Respiratory Rate - - Oxygen Saturation - - Inhaled Oxygen Concentration - - Weight 73.8 kg (162 lb 11.2 oz) 010 12:00 AM EDT Height 174 cm (5' 8.5 ) 12/18/2009 12:0 0 AM EDT Body Mass Index 24.38 12/18/2009 12:00 AM EDT Plan of Treatment Health Maintenance Due Date Last Done Comments DTaP,Tdap,and Td Vaccines (7 - Td or Tdap) 11/16/2018 11/16/2008, 12/06/2001, 11/28/1996, Additional history exists Influenza Vaccines (#1) 2024 COVID-19 Vaccine ( - season) 2024 HIB Vaccines Completed 02/27/1993, 05/12, 03/25/1992, Additional history exists Hepatitis B Vaccines Completed 02/27/1993, 01/25/1992, 1991 IPV Vaccines Completed 11/28/1996, 07/12, 03/25/1992, Additional history exists MMR Vaccines Completed 11/28/1996, 02/27/1993 Meningococcal Vaccine Completed 11/16/2008 Varicella Vaccines Completed 11/16/2008, 12/06/2001 HPV Vaccines Aged Out No longer eligi ble based on patient's age to complete this topic Hepatitis A Vaccines Aged Out No long er eligible based on patient's age to complete this topic Men B Vaccine Aged Out No longer elig ible based on patient's age to complete this topic Pneumococcal Vaccine Aged Out No long er eligible based on patient's age to complete this topic Care Teams Business Management Intern Relationship Specialty Start Date End Date Ze Calles MD [address] [place] [address] PCP - General 11/17/17
--- OUTSIDE RECORDS SUMMARY | 2024-08-14 09:52 | XMS_ITS | Encounter Summary ---
Author Organization [facility] Address [address] [place] [address] Phone Care Team Providers Care Claim Trainee Name Role Phone Ze Calles MD Primary Care Provider Encounter Details Date Type Department Care Team (Late st Contact Info) Description 11/28/2017 Conversion Encounter [facility] [address] [place] [address] Ze Calles MD [address] [place] [id number] Social History Tobacco Use Types Packs/Day Years Used Date Smoking Tobacco: Never Assessed Sex and Gender Information Value Date Recorded Sex Assigned at Not on file Legal Sex Male 6:09 PM EDT Gender Identity Not on file Sexual Orientation Not on file documented as of this encounter Plan of Treatment Not on file documented as of this encounter Visit Diagnoses Not on filedocumented in this encounter Care Teams Claim Trainee Relationship Specialty Start Date End Date Ze Calles MD [address] [place] [address] PCP - General 11/17/17 documented as of this encounter
--- OUTSIDE RECORDS SUMMARY | 2024-08-14 09:52 | XMS_ITS | Clinical Summary ---
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 Name Role Phone Unavailable Primary Care Provider Unavailabl e Social History Tobacco Use Types Packs/Day Years Used Date Smoking Tobacco: Never Assessed Sex and Gender Information Value Date Recorded Sex Assigned at Not on file Gender Identity Not on file Sexual Orientation Not on file Plan of Treatment Health Maintenance Due Date Last Done Comments DTaP,Tdap,and Td Vaccines (1 - Tdap) 11/21/2010 Hepatitis B Vaccines (1 of 3 - 19+ 3-dose series) 11/21/2010 COVID-19 Vaccine (2023-2 5 season) 2024 Influenza Vaccine (#1) 2024 HIB Vaccines Aged Out No longer eligi ble based on patient's age to complete this topic HPV Vaccines Aged Out No longer eligi ble based on patient's age to complete this topic Hepatitis A Vaccines Aged Out No long er eligible based on patient's age to complete this topic IPV Vaccines Aged Out No longer eligi ble based on patient's age to complete this topic MMR Vaccines Aged Out No longer eligi ble based on patient's age to complete this topic Meningococcal ACWY Vaccine Aged Out N o longer eligible based on patient's age to complete this topic Pneumococcal Vaccine: Pediat rics (0 to 5 Years) and At-Risk Patients (6 to 64 Years) Aged Out No longer eligible b ased on patient's age to complete this topic RSV Immunization Patients Un scott 20 months Aged Out No longer eligible b ased on patient's age to complete this topic Varicella Vaccines Aged Out No longer eligible based on patient's age to complete this topic
[2024-08-14 12:16] LABS: Anion Gap 13 (12-20); Blood Urea Nitrogen 19 mg/dL (9-16); Calcium 9.4 mg/dL (8.4-10.2); Carbon Dioxide 25 mmol/L (22-29); Chloride 106 mmol/L (96-108); Estimated Glomerular Filt Rate > 60; Glucose Random 95 mg/dL (60-115); Potassium 3.8 mmol/L (3.3-5.1); Sodium 140 mmol/L (135-145)
[2024-08-14 12:26] LABS: Free T4 (Free Thyroxine) 1.09 ng/dL (0.71-1.85)
[2024-08-15 19:43] LABS: Triiodothyronine T3 Total 103 ng/dL (76-181)
== END 2024-08-14 09:26 | disposition home or self-care (01) ==
LOC: HO.WFDLDS 09:25
PROVIDERS: Visit Provider Family Medicine
DX: Z00.00 Encounter for general adult medical examination without abnormal findings (principal); E03.9 Hypothyroidism, unspecified
CPT/HCPCS: 36415; 80048; 84439; 84443; 84480

== ENCOUNTER → 2024-08-23 14:03 | Outpatient (AMB) | payer OTHER, SELFPAY ==
--- NOTE | 2024-08-23 14:00 | A.OFFPC_ITS ---
Intake Visit Reasons: f/u hypothyroidism via telemedicine Allergies No Known Allergies Allergy (Verified 06/15/24 08:59) Tobacco use date assessed: 09/28/23 Dental Screening Dental Screen Date: 08/23/23 HPI f/u hypothyroidism via telemedicine HPI Details Telemedicine?appointment?to?follow-up?on?patient's?thyroid? hormone?levels. Had?checked?TSH?in?March?and?it?was?mildly?elevated. Rechecked?TSH?and?T4/T3?in?June; TSH?was?higher?than?6?and?T3?was?mildly?depressed. Sent?script?to?increase?levothyroxine? to?100?mcg?daily?and?patient?has?taking?this?since. TSH,?T3/T4?are?all?within?normal?range?now. Patient?had?questions?regarding?weight?gain.??He?says?that?since?taking?the?high er?dose?he?has?been?g aining?weight?and?wonders?if?it?is?related?to?the?medication PFSH Medical History High blood pressure Acute pancreatitis Pneumonia Surgical History Hx of tonsillectomy Family History Father High blood pressure Mother High blood pressure Maternal Grandfather High blood pressure Maternal Grandmother High blood pressure Paternal Grandfather High blood pressure Paternal Grandmother High blood pressure Social History Household Members: None Housing: House Are you a primary animal care supervisor to a significant other at home: No Do you presently have visiting nurse or other home services: No 75 years or older and lives alone: No Alcohol intake: never Patient Tobacco Use Status: Never used Tobacco e-Cigarette/Vaping Use: Never Used Special mariah needs: No service: Yes Current occupational status: employed Current occupation: [employer]. Cognitive needs: No Hearing needs: No Vision needs: No Questionnaire Thrive Questionnaire Date Thrive assessed: 06/15/24 POLLY-7 AMB Questionnaire POLLY-7 Date POLLY - 7 assessed: 08/23/23 Source: Developed by Drs. Ze Villatoro, Marnie Olsen, Tim Painter and colleagues, with an educational jase from [facility]. Review of Systems Const Denies chills, Denies fatigue, Denies fever(s), Denies headache(s) and Denies weakness ENT Denies dizziness and Denies headache(s) Card Denies chest pain, Denies lightheadedness, Denies dyspnea and Denies other (Palpitations) Resp Denies cough, Denies dyspnea, Denies wheezing and Denies other ( shortness of breath) Musc Denies numbness and Denies tingling Neuro Denies dizziness, Denies headache(s), Denies numbness, Denies tingling, Denies paresthesias and Denies weakness Psych Denies anxiety and Denies depression Endo Denies fatigue Aller/Immun Denies wheezing Physical exam (Primary Care) Tobacco/Smoking Status: Tobacco use Status Tobacco use date assessed 09/28/23 08/23/24 14:03 Patient Tobacco Use Status Never used Tobacco 08/23/24 14:03 e-Cigarette/Vaping Use Never Used 08/23/24 14:03 Thrive Assessment: Date of Thrive Assessment Date Thrive assessed 06/15/24 08/23/24 14:03 Telehealth Telehealth Telehealth Platform: Telephone Location of provider rendering services: practice address Location of patient: address on file Patient Identification confirmed using: Name, : Yes Telehealth method: voice only Patient verbally consented to treatment: Yes Patient verbally consented to billing insurance company: Yes Patient informed of any privacy concerns related to visit: Yes Minutes spent on Phone/Video with Pt.: 6 Coding Level of Care Code Tele Est Pt Level 2 (98915) Diagnoses Hypothyroidism E03.9 Hyperlipidemia E78.5 Assessment & Plan Assessment & Plan (1) Hypothyroidism: Code(s): E03.9 - Hypothyroidism, unspecified Category: Medical Plan: Thyroid?hormone?levels?all?within?normal?range?after?increasing?levothyroxine?to ?100?mcg?daily. Explained?to?patient?that?increasing?levot hyroxine?is?not?the?likely?cause?of?weight?gain. Continue?current?medication (2) Hyperlipidemia: Code(s): E78.5 - Hyperlipidemia, unspecified Category: Medical Plan: Patient?is?taking?rosuvastatin?as?prescribed. Also?history?of?cardiomyopathy We?recheck?lipids?prior?to?next?visit Orders: Orders Comprehensive [place]. Panel Fast Today Z00.00 - Encounter for general adult medical examination without abnormal findings Lipid Panel Today Z00.00 - Encounter for general adult medical examination without abnormal findings Free T4 (Free Thyroxine) Today E03.9 - Hypothyroidism, unspecified Thyroid Stimulating Hormone Today E03.9 - Hypothyroidism, unspecified Triiodothyronine T3 Total Today E03.9 - Hypothyroidism, unspecified Microalbumin, Random (w Creat) Today I10 - Essential (primary) hypertension
--- OUTSIDE RECORDS SUMMARY | 2024-08-23 15:27 | XMS_ITS | Clinical Summary ---
Author Organization [facility] Address [address] [place] [address] Care Team Providers Care Inclusion Manager Name Role Phone Unavailable Primary Care Provider Unavailabl e Social History Tobacco Use Types Packs/Day Years Used Date Smoking Tobacco: Never Assessed Sex and Gender Information Value Date Recorded Sex Assigned at Not on file Legal Sex Male 9:00 AM EST Gender Identity Not on file Sexual Orientation [...]
--- OUTSIDE RECORDS SUMMARY | 2024-08-23 15:27 | XMS_ITS | Clinical Summary ---
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
--- OUTSIDE RECORDS SUMMARY | 2024-08-23 15:27 | XMS_ITS | Encounter Summary ---
Author Organization [facility] Address [address] [place] [address] Phone Care Team Providers Care Planning Intern Name Role Phone Ze Calles MD Primary Care Provider [phone] Encounter Details Date Type Department Care Team (Late st Contact Info) Description 11/28/2017 Conversion Encounter [facility] [address] [place] [address] Ze Calles MD [address] [place] [id number] Social History Tobacco Use Types Packs/Day Years [...] on filedocumented in this encounter Care Teams Planning Intern Relationship Specialty Start Date End Date Ze Calles MD [address] [place] [address] PCP - General 11/17/17 08/22/24 documented as of this encounter
--- OUTSIDE RECORDS SUMMARY | 2024-08-23 15:27 | XMS_ITS | Data Portability ---
Author Organization [facility] Tushar Joyner [facility]geons [facility], [facility] Address [address] [place] [address] Care Team Providers Care System Archive Analyst Name Role Phone ALYSSA MERINO Primary Care Provider Assessment No assessment recorded. Plan of Treatment Reminders Order Date Submit Date Provider Last Modified By Organization Details Last Modified Time Details Appointments None recorded. Lab None recorded. Referral None recorded. Procedures None recorded. Surgeries None recorded. Imaging MRI, lumbar spine, w/o contrast - EVAL LUMBAR RADICULOPAT HY 2023 024 [email or web address] [facility] ([facility]), [address] [place], [address], 4 10:08:24 Medication Orders cyclobenzap rine 5 mg tablet 2023 024 [email or web address] [id number], [address] [place], [address], 10:14:50 Patient TargetsNo targets recorded. Patient InstructionsNo instructions recorded. Reason for Referral None Reported. Results Created Date Observation Date Name Description Value Unit Range Abnormal Flag Note LastModifiedBy Organization Detail LastModifiedTime 03/11/20 24 03/10/2024 MRI, lumba r spine , w/o contr ast No observ ation record ed. [facility] [place] [address] [facility] [address], [place], [address], 03/14/2024 07:54:50 Result Notes None recorded. Procedures Surgical History None recorded. Imaging Results Imaging Date Name Status LastModified by Organiz ation Details LastModified Time 03/10/2024 MRI, lumbar spine, w/o contrast completed [facility] [place] [address] [facility] [address], [place], [address], 03/14/2024 07:54:50 Procedure Notes None recorded. Medical Equipment None Reported. Allergies No known drug allergies Medications Name Sig Start Date Stop Date Status Note LastModified by Organization Details LastModified Time cyclobenzap rine 10 mg tablet TAKE 1 TABLET ORALLY 3 TIMES A DAY NEEDED FOR MUSCLE SPASM FOR 10 DAYS 03/02 completed Not Available Not Available Not Available atorvastati n 40 mg tablet TAKE 1 TABLET BY MOUTH AT BEDTIME active Not Available Not Available No t Available atorvastati n 80 mg tablet TAKE 1 TABLET BY MOUTH EVERYDAY AT BEDTIME active Not Available Not Available No t Available meloxicam 15 mg tablet TAKE 1 TABLET ORALLY DAILY FOR 30 DAYS 03/02 completed Not Available Not Available Not Available levothyroxi ne 75 mcg tablet TAKE 1 TABLET BY MOUTH EVERY DAY active Not Available Not Available No t Available levothyroxi ne 100 mcg tablet TAKE 1 TABLET BY MOUTH EVERY DAY active Not Available Not Available No t Available levothyroxi ne 50 mcg tablet TAKE 1 TABLET BY MOUTH EVERY DAY active Not Available Not Available No t Available oxycodone 5 mg tablet 03/02 completed Not Available Not Available Not Available cyclobenzap rine 5 mg tablet TAKE 1 TABLET BY ORAL ROUTE AT BEDTIME FOR 14 DAYS. active Not Available Not Available No t Available rosuvastati n 40 mg tablet TAKE 1 TABLET BY MOUTH EVERY DAY active Not Available Not Available No t Available Vitals Date Recorded Body height Body mass index (BMI) Body weight Provider Name and Address Organization Details Last Updated DateTime 03/02/2024 175.26 cm 31 kg/m2 33295.4 g LINWOOD CALLES [facility] 03/02/2024 09:33:23 Date Recorded Body height Body mass index (BMI) Body weight Provider Name and Address Organization Details Last Updated DateTime 03/27/2024 175.26 cm 31 kg/m2 37419.4 g BROOK MCKEON [facility] 03/27/2024 09:02:49 Date Recorded Body height Body mass index (BMI) Body weight Provider Name and Address Organization Details Last Updated DateTime 06/30/2024 175.26 cm 31 kg/m2 23008.4 g BROOK LINDA [place] [facility] [place] [facility] 06/30/2024 08:40:58 Social History None recorded. Functional Status None recorded. Mental Status None recorded. Family History Nothing Reported. Medical History No medical history recorded. Past Encounters Encounter ID Performer Location Encounter Start Date Encounter Closed Date Diagnosis/Indication Diagnosis SNOMED-CT Code Diagnosis ICD10 Code Diagnosis Note [id number] CORONA HERNANDEZ PA-C [place] [address] [place] [address] 03/02/2024 09:21:13 03/27/2024 10:08:24 Lumbar radiculopathy 841647677 M54.16 [id number] CORONA HERNANDEZ PA-C [place] [address] [place] [address] 03/27/2024 08:53:20 04/18/2024 12:47:51 Low back pain 137471263 M54.50 [id number] CORONA HERNANDEZ PA-C [place] [address] [place] [address] 06/30/2024 08:36:50 07/21/2024 09:52:27 Lumbar radiculopathy 757198639 M54.16 Health Concerns Section Related Observation LastModified by Organization Detai ls LastModified Time None Recorded Concern Status LastModified by Organization Details LastModified Time None Recorded Advance Directives Directive None Recorded Payers Encounter Date Sequence Insurance Name Policy Number Policy Torres Covered Member ID Torres Member ID Guarantor Name 03/02/2024 1 [place] PRIOR TO 2024 - [employer] () Kiran Santillan [id number] Kiran Santillan 03/27/2024 1 [place] - [place] PRIOR TO 2024 - [employer] () Kiran Santillan [id number] Kiran Santillan 06/30/2024 1 [place] - [place] PRIOR TO 2024 - [employer] () Kiran Santillan [id number] Kiran Santillan Notes Date Note Type Note Provider Name and Address Organization Details Recorded Time 03/02/2024 text/html I am seeing the patient today under the supervision of Dr. Morse who was available but who did not see the patient. HPI: Patient is a pleasant 33-year-old male who presents for evaluation of ongoing low back pain. He reports he was lifting about 4 months ago doing bicep curls when he felt a pop in his left low back. At initial onset of symptoms he reports he has left lower extremity numbness and tingling and pain that radiated down the lower leg. He reports he has been doing physical therapy for the last month has been previously treated with muscle relaxers and NSAIDs but does not recall which these were. He reports today stating he has had some improvement with pain however cannot sit for prolonged periods of time has increased pain and is concerned that he cannot drive for prolonged periods of time he sold his motorcycle because he is concerned in his low back pain. He is looking to get some further answers on what to do next even though he has had significant improvement at this time. TREATMENTS: As noted in the HPI Past family, medical, social history and review of systems has been reviewed, updated and signed by me and is located in the patient? ? ?s chart. Examination: The patient is well appearing, alert and oriented x3 and in no acute distress. Gait is not antalgic. patient prefers to stand initially was clear he is uncomfortable sitting performed Patient is able to transition from seated to standing position with difficulty.Inspection of the spine reveals no step off, deformity or overlying skin changes or atrophy.The spine is nontender over the paravertebral musculature. Nontender over TFL, greater trochanters or posterior hip musculature.Range of motion of the Lumbar spine is 80% Of normalRange of motion of the hips is full without discomfort. Patient endorses pain with straight leg raise of the left leg in the low back. Denies radicular symptomsStrength in lower extremity myotomes 5/5 bilaterally.Sensation intact.Re? e xes normal 2+at knee and ankle. No ankle clonus X-rays ordered, obtained at [facility] and reviewed independently at [facility], 2 views of the lumbar spine reveals no fractures, instability or bony lesions. Patient has notable loss of lordosis there is loss of disc height at the level of L5-S1 facet arthropathy at the levels of L4-L5 otherwise patient is well-preserved disc heights normal vertebral body appearance. Impression/Plan: Low back pain, low back strain with previous radicular symptoms question of degenerative disc disease at the L5-S1 level. Has the patient is concerned that he is plateaued and is not getting any better he is continued on home exercise program following physical therapy at this time feel the next except would be ordering an MRI to evaluate left lumbar radiculopathy. An order was placed at the appointment today patient was educated he would be called by the MRI office to schedule the appointment. He was given a refill for cyclobenzaprine to assist with muscle spasm risks and benefits of taking his medication such as increased drowsiness were discussed in office today. Patient will follow-up in 3 to 4 weeks for an MRI review. We discussed at that time likely in the event he continues to have pain and discomfort we will refer him to injection type therapy as he does not have any red flag symptoms that would require surgeries unless there is anything found on the MRI that would change his thought process we will likely be following up with more conservative treatment. Patient expressed understanding agreement the plan. All other questions asked and answered. [employer] speech recognition a p supervisor software was used to create portions of this document. An attempt at proofreading has been made to minimize errors. Please call for corrections. CORONA HERNANDEZ PA-C [address] [place] [address] [address] [facility], [place], [address], [facility] - [facility] 03/02/2024 11:32:45 03/27/2024 text/html I am seeing the patient today under the supervision of Dr. Morse who was available but who did not see the patient. HPI: Patient is a pleasant 33-year-old male who presents in follow-up for ongoing low back pain With radicular symptoms. At previous appointment patient was given refill for cyclobenzaprine as well as prescription of meloxicam. He had been completing physical therapy during prior appointment. Patient is here today for MRI review. He reports his symptoms have stayed the same since last appointment. He denies any radicular leg pain however he does have significant pressure that he reports feels like a ball in the low back midline when seated for prolonged periods of time. He does endorse that even driving the 30 minutes here today was aggravating for him. He endorses he has completed physical therapy. TREATMENTS: As noted in the HPI Past family, medical, social history and review of systems has been reviewed, updated and signed by me and is located in the patient? ? ?s chart. Examination: The patient is well appearing, alert and oriented x3 and in no acute distress. Gait is not antalgic. patient prefers to stand initially was clear he is uncomfortable sitting performed Patient is able to transition from seated to standing position with difficulty.Inspection of the spine reveals no step off, deformity or overlying skin changes or atrophy.The spine is nontender over the paravertebral musculature. Nontender over TFL, greater trochanters or posterior hip musculature.Range of motion of the Lumbar spine is 80% Of normalRange of motion of the hips is full without discomfort. Patient endorses pain with straight leg raise of the left leg in the low back. Denies radicular symptomsStrength in lower extremity myotomes 5/5 bilaterally.Sensation intact.Re? e xes normal 2+at knee and ankle. No ankle clonus MRI lumbar spine without contrast dated 03/10/2024 was independently reviewed in office today. Significant for degenerative disc disease at the level of L4-L5 with disc herniation causing mild canal stenosis and nerve roots exiting appear to have appropriate room. Patient also has a small disc bulge at the level of L5-S1. There is also bilateral for foraminal stenosis at both of these levels Impression/Plan: Low back pain, low back strain with previous radicular symptoms question of degenerative disc disease at the L5-S1 level. Discussed with the patient at this time I would refer him to [facility] for injection type therapy. We discussed that they would complete an initial consult visit with him and discussed the potential treatment options moving forward. I did state in the event they felt that it was appropriate for him to complete another course of physical therapy in conjunction with the injection therapy that this would also be an option for him. Will plan to follow-up in 3 months following injection therapy at that time patient is doing well we will likely have him follow-up on an as-needed basis. Patient was educated that our office is primarily surgical in nature and at this time he does not have findings significant or consistent with needing surgery. Patient expressed understanding and agreement the plan. All her questions asked and answered. [employer] speech recognition a p supervisor software was used to create portions of this document. An attempt at proofreading has been made to minimize errors. Please call for corrections. CORONA HERNANDEZ PA-C [address], [place], [address], [facility] - [place] [facility] 03/27/2024 09:43:11 06/30/2024 text/html I am seeing the patient today under the supervision of Dr. Morse who was available but who did not see the patient. HPI: Patient is a pleasant 33-year-old male who presents in follow-up for ongoing low back pain With radicular symptoms. Patient presents today stating he was seen and treated at [facility] he received 1 injection has been feeling great since then. Is back to his previous level of function lifting and continuing his home exercise program. He has had follow-up with [facility] and does have set plans in the event he has return of symptoms to call for secondary injection. He denies any pain or interval trauma since previous visit here. TREATMENTS: As noted in the HPI Past family, medical, social history and review of systems has been reviewed, updated and signed by me and is located in the patient? ? ?s chart. Examination: The patient is well appearing, alert and oriented x3 and in no acute distress. Gait is not antalgic. patient prefers to stand initially was clear he is uncomfortable sitting performed Patient is able to transition from seated to standing position with difficulty.Inspection of the spine reveals no step off, deformity or overlying skin changes or atrophy.The spine is nontender over the paravertebral musculature. Nontender over TFL, greater trochanters or posterior hip musculature.Range of motion of the Lumbar spine is 80% Of normalRange of motion of the hips is full without discomfort. Patient endorses pain with straight leg raise of the left leg in the low back. Denies radicular symptomsStrength in lower extremity myotomes 5/5 bilaterally.Sensation intact.Re? e xes normal 2+at knee and ankle. No ankle clonus MRI lumbar spine without contrast dated 03/10/2024 was independently reviewed in office today. Significant for degenerative disc disease at the level of L4-L5 with disc herniation causing mild canal stenosis and nerve roots exiting appear to have appropriate room. Patient also has a small disc bulge at the level of L5-S1. There is also bilateral for foraminal stenosis at both of these levels Impression/Plan: Low back pain, low back strain with previous radicular symptoms question of degenerative disc disease at the L5-S1 level. Patient presents today with his resolution of symptoms overall doing well. We discussed that he can continue to do his home exercise program continue with his level of function working on lifting core and pelvic strengthening. Patient will follow-up on an as-needed basis all her questions asked and answered. Patient expressed understanding agreement of plan. [employer] speech recognition a p supervisor software was used to create portions of this document. An attempt at proofreading has been made to minimize errors. Please call for corrections. CORONA HERNANDEZ PA-C [address] [place], [place] [address] [address], [place], [address], [facility] - [place] [facility] 06/30/2024 08:56:04
== END ==
LOC: HO.HMCFM 14:03
PROVIDERS: PCP Family Medicine; Visit Provider Family Medicine
DX: E03.9 Hypothyroidism, unspecified (principal); E78.5 Hyperlipidemia, unspecified

== ENCOUNTER 2025-05-07 08:15 | Outpatient (REF) | payer OTHER, SELFPAY ==
--- OUTSIDE RECORDS SUMMARY | 2025-05-07 08:31 | XMS_ITS | Data Portability ---
Author Organization [place] [facility] [place] [facility], [facility] Address [address] [place] [address] Care Team Providers Care Piano Case Maker Name Role Phone ALYSSA MERINO Primary Care Provider Assessment No assessment recorded. Plan of Treatment Reminders Order Date Submit Date Provider Last Modified By Organization Details Last Modified Time Details Appointments None recorded. Lab None recorded. Referral None recorded. Procedures None recorded. Surgeries None recorded. Imaging MRI, lumbar spine, w/o contrast - EVAL LUMBAR RADICULOPAT HY 2023 024 [email or web address] [facility] ([facility]), [address] [place], [address], 4 10:08:24 Medication Orders cyclobenzap rine 5 mg tablet 2023 024 [email or web address] [id number], [address] [place], [address], 10:14:50 Patient TargetsNo targets recorded. Patient InstructionsNo instructions recorded. Reason for Referral None Reported. Results Created Date Observation Date Name Description Value Unit Range Abnormal Flag Note LastModifiedBy Organization Detail LastModifiedTime 03/11/2003/10/2024 MRI, lumba r spine , w/o contr ast No observ ation record ed. [facility] [place] [address] [address], [place], [address], 03/14/2024 07:54:50 Result Notes None recorded. Medical Equipment None Reported. [...] Updated DateTime 03/02/2024 175.26 cm 31 kg/m2 03859.4 g LINWOOD CALLES [facility] 03/02/2024 09:33:23 Date Recorded Body height Body mass index (BMI) Body weight Provider Name and Address Organization Details Last Updated DateTime 03/27/2024 175.26 cm 31 kg/m2 24675.4 g [facility] 03/27/2024 09:02:49 Date Recorded Body height Body mass index (BMI) Body weight Provider Name and Address Organization Details Last Updated DateTime 06/30/2024 175.26 cm 31 kg/m2 46010.4 g [facility] 06/30/2024 08:40:58 Social History None recorded. Functional Status None recorded. Mental Status None recorded. Family History Nothing Reported. Medical History No medical history recorded. Past Encounters Encounter ID Performer Location Encounter Start Date Encounter Closed Date Diagnosis/Indication Diagnosis SNOMED-CT Code Diagnosis ICD10 Code Diagnosis IMO Codes Diagnosis Note [id number] CORONA HERNANDEZ PA-C [place] [address] [place] [address] 03/02/2024 09:21:13 03/27/2024 10:08:24 Lumbar radiculopathy [id number] M54.16 [id number] CORONA HERNANDEZ PA-C [place] [address] [place] [address] 03/27/2024 08:53:20 04/18/2024 12:47:51 Low back pain [id number] M54.50 [id number] CORONA HERNANDEZ PA-C [place] [address] [place] [address] 06/30/2024 08:36:50 07/21/2024 09:52:27 Lumbar radiculopathy 839567565 M54.16 [id number] Health Concerns Section Related Observation LastModified by Organization Detai ls LastModified Time None Recorded Concern Status LastModified by Organization Details LastModified Time None Recorded Advance Directives Directive None Recorded Payers Insurance Date Sequence Insurance Name Policy Number Policy Torres Covered Member ID Torres Member ID Guarantor Name 07/21/2024 1 [facility] Kiran Santillan [id number] Kiran Santillan Notes Date Note Type Note [...] by me and is located in the patient s chart. Examination: The patient is well appearing, [...] symptomsStrength in lower extremity myotomes 5/5 bilaterally.Sensation intact.Re e xes normal 2+at knee and ankle. No ankle clonus X-rays ordered, obtained at [facility] and reviewed independently at [facility], 2 views of the lumbar spine reveals [...] plan. All other questions asked and answered. [facility] speech recognition residential installer software was used to create portions of this document. An attempt at proofreading has been made to minimize errors. Please call for corrections. CORONA HERNANDEZ PA-C [address] [facility] [address], [place], [address], [facility] - [place] [facility] 03/02/2024 11:32:45 03/27/2024 text/html I am seeing [...] by me and is located in the patient s chart. Examination: The patient is well appearing, [...] symptomsStrength in lower extremity myotomes 5/5 bilaterally.Sensation intact.Re e xes normal 2+at knee and ankle. [...] this time I would refer him to [facility] for injection type therapy. We discussed that [...] plan. All her questions asked and answered. [email or web address] speech recognition residential installer software was used to create portions of this document. An attempt at proofreading has been made to minimize errors. Please call for corrections. CORONA HERNANDEZ PA-C [address] [place] [address] [address], [place], [address], [facility] - [place] [facility] 03/27/2024 09:43:11 06/30/2024 text/html I am seeing the patient today under the supervision of Dr. Morse who was available but who did not see the patient. HPI: Patient is a pleasant 33-year-old male who presents in follow-up for ongoing low back pain With radicular symptoms. Patient presents today stating he was seen and treated at [facility] he received 1 injection has been feeling great since then. Is back to his previous level of function lifting and continuing his home exercise program. He has had follow-up with [facility] and does have set plans in the event he has return of symptoms to call for secondary injection. He denies any pain or interval trauma since previous visit here. TREATMENTS: As noted in the HPI Past family, medical, social history and review of systems has been reviewed, updated and signed by me and is located in the patient s chart. Examination: The patient is well appearing, [...] symptomsStrength in lower extremity myotomes 5/5 bilaterally.Sensation intact.Re e xes normal 2+at knee and ankle. [...] answered. Patient expressed understanding agreement of plan. [employer] speech recognition residential installer software was used to create portions of this document. An attempt at proofreading has been made to minimize errors. Please call for corrections. CORONA HERNANDEZ PA-C [address] [place] [address], [place], [address], [facility] - [place] [facility] 06/30/2024 08:56:04
--- OUTSIDE RECORDS SUMMARY | 2025-05-07 08:31 | XMS_ITS | Clinical Summary ---
Author Organization [facility] Address [address] [place] [address] Phone Care Team Providers Care Bioinformatics Computer Scientist Name Role Phone Unavailable Primary Care Provider [...] 11/16/2018 11/16/2008, 12/06/2001, 11/28/1996, Additional history exists HPV Vaccines (1 - 3-dose SCDM series) 11/21/2018 Influenza Vaccines (#1) 2025 COVID-19 Vaccine (2024- season) 2025 HIB Vaccines Completed 02/27/1993, 05/12, 03/25/1992, Additional history exists Hepatitis B Vaccines Completed 02/27/1993, 01/25/1992, 1991 IPV Vaccines Completed 11/28/1996, 07/12, 03/25/1992, Additional history exists MMR Vaccines Completed 11/28/1996, 02/27/1993 Meningococcal Vaccine Completed 11/16/2008 Varicella Vaccines Completed 11/16/2008, 12/06/2001 Hepatitis A Vaccines Aged Out No long er eligible based on patient's age to complete this topic Men B Vaccine Aged Out No longer elig ible based on patient's age to complete this topic Pneumococcal Vaccine Aged Out No long er eligible based on patient's age to complete this topic
--- OUTSIDE RECORDS SUMMARY | 2025-05-07 08:31 | XMS_ITS | Encounter Summary ---
Author Organization [facility] Address [address] [place] [address] Phone Care Team Providers Care Wharf Tender Head Name Role Phone Ze Calles MD Primary Care Provider [phone] Encounter Details Date Type Department Care Team (Late st Contact Info) Description 11/28/2017 Conversion [facility]counter [facility] [address] [place] [address] Ze Calles MD [address] [place] [id number] Social History Tobacco Use Types Packs/Day Years [...] on filedocumented in this encounter Care Teams Wharf Tender Head Relationship Specialty Start Date End Date Ze Calles MD [address] [place] [address] PCP - General 11/17/17 08/22/24 documented as of this encounter
--- OUTSIDE RECORDS SUMMARY | 2025-05-07 08:31 | XMS_ITS | Clinical Summary ---
Author Organization [facility] Address [address] [place] [address] Care Team Providers Care Training Mgr Name Role Phone Unavailable Primary Care Provider [...] of 3 - 19+ 3-dose series) 11/21/2010 HPV Vaccines (1 - 3-dose SCD M series) 11/21/2018 Depression Screening 07/12/2024 COVID-19 Vaccine (1 - 2023-2 5 season) 2025 Influenza Vaccine (#1) 2025 RSV Immunization Adult Patie nts (1 - 1-dose 75+ series) 11/21/2066 HIB Vaccines Aged Out No longer eligi [...] patient's age to complete this topic Meningococcal B Vaccine Aged Out No l onger eligible based on patient's age to complete this topic Pneumococcal Vaccine: Pediat rics (0 to 5 Years) and At-Risk Patients (6 to 49 Years) Aged Out No longer eligible b ased on patient's age to complete this topic RSV Immunization Patients Un scott 20 months Aged Out No longer eligible b ased on patient's age to complete this topic Varicella Vaccines Aged Out No longer eligible based on patient's age to complete this topic
[2025-05-07 12:14] LABS: Alanine Aminotransferase 28 U/L (0-40); Albumin Level 4.7 g/dL (3.5-5.0); Alkaline Phosphatase 63 U/L (39-117); Anion Gap 11 (12-20); Aspartate Amino Transferase 38 U/L (5-37); Blood Urea Nitrogen 12 mg/dL (9-16); Calcium 9.2 mg/dL (8.4-10.2); Carbon Dioxide 26 mmol/L (22-29); Chloride 107 mmol/L (96-108); Cholesterol 180 mg/dL (<200); Estimated Glomerular Filt Rate > 60; HDL Cholesterol 44 mg/dL (>40); Potassium 3.9 mmol/L (3.3-5.1); Sodium 140 mmol/L (135-145); Total Protein 7.3 g/dL (6.5-8.0); Triglycerides 94 mg/dL (<150)
[2025-05-07 12:35] LABS: Free T4 (Free Thyroxine) 0.89 ng/dL (0.71-1.85); Thyroid Stimulating Hormone 2.46 uIU/mL (0.32-4.0)
== END 2025-05-07 08:16 | disposition home or self-care (01) ==
LOC: HO.WFDLDS 08:15
PROVIDERS: Visit Provider Family Medicine
DX: Z00.00 Encounter for general adult medical examination without abnormal findings (principal); E03.9 Hypothyroidism, unspecified; I10 Essential (primary) hypertension
CPT/HCPCS: 36415; 80053; 80061; 82043; 82570; 84439; 84443; 84480

== ENCOUNTER 2025-05-11 15:24 | Outpatient (AMB) | payer OTHER, SELFPAY ==
--- NOTE | 2025-05-11 15:29 | MHC.PC.OV ---
Vital Signs 05/11/25 15:31 Height 5 ft 9 in Weight 224 lb 4 oz BMI 33.1 BP 100/66 Blood Pressure Location Rt brachial Position Sitting Respiration 16 Pulse 80 Pulse Source Pulse Oximeter Temp 98.7 F Temp Source Oral Pulse Oximetry (%) 96 Oxygen Delivery Method Room Air Intake Visit Reasons: CPE with f/u labs and health maint. 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 30 mins HPI Details 34 y/o male presents for a CPE with f/u labs and health maint. Labs drawn 05/07/25. Reviewed labs with pt. Elevated AST of 38. ALT 28. Triglycerides 94. TC 180. LDL 118. HDL 44. TSH 2.46 uIU/mL. Also reports fatigue. Reports decreased sex drive. [facility] Medical History High blood pressure Acute pancreatitis Pneumonia Surgical History Hx of tonsillectomy Family History Father High blood pressure Mother High blood pressure Maternal Grandfather High blood pressure Maternal Grandmother High blood pressure Paternal Grandfather High blood pressure Paternal Grandmother High blood pressure Social History Household Members: None Housing: House Are you a primary respiratory care specialist to a significant other at home: No Do you presently have visiting nurse or other home services: No 75 years or older and lives alone: No Alcohol intake: never Patient Tobacco Use Status: Never used Tobacco e-Cigarette/Vaping Use: Never Used Special mariah needs: No service: Yes Current occupational status: employed Current occupation: [employer]. Cognitive needs: No Hearing needs: No Vision needs: No Questionnaire PHQ-9 Over the last 2 weeks, how often have you been bothered by any of the following problems? 1. Little interest or pleasure in doing things: not at all 2. Feeling down, depressed, or hopeless: not at all 3. Trouble falling or staying asleep, or sleeping too much: not at all 4. Feeling tired or having little energy: several days 5. Poor appetite or overeating: not at all 6. Feeling bad about yourself - or that you are a failure or have let yourself or your family down: not at all 7. Trouble concentrating on things, such as reading the newspaper or watching television: not at all 8. Moving or speaking so slowly that other people could have noticed. Or the opposite - being so fidgety or restless that you have been moving around a lot more than usual: not at all 9. Thoughts that you would be better off or of hurting yourself in some way: not at all Total score: 1 Depression Screening Interpretation: Negative Depression Screening Done: Yes [address]285 - PHQ-9 Billing: Yes Source: Developed by Drs. Ze Villatoro, Marnie Olsen, Tim Painter and colleagues, with an educational jase from [employer]. Thrive Questionnaire Date Thrive assessed: 05/11/25 I am a: Patient What is your living situation today?: I have a steady place to live Within the past 12 months, did the food you bought not last and you didn't have the money to get more?: Never true Within the past 12 months, did you worry whether your food would run out before you got money to buy more?: Never true Do you have trouble paying for medicines?: No Do you have trouble getting transportation to medical appointments?: No Do you have trouble paying your heating and electricity bill?: No Do you have trouble taking care of your child, family member or friend?: No Do you have trouble with day-to-day activities such as bathing, preparing meals, shopping, managing finances, etc.?: No Are you currently unemployed and looking for a job?: No Are you interested in more education?: No Please select the resources that you would like help with: None Currently or been in a relationship where the following occur: No concerns reported THRIVE Score: 0 AUDIT C Alcohol Use Questionnaire (AUDIT-C) 1. How often do you have a drink containing alcohol?: Never Total Score: 0 Score Reviewed/Action Taken: Yes POLLY-7 AMB Questionnaire POLLY-7 Date POLLY - 7 assessed: 05/11/25 Feeling nervous, anxious, or on edge: 0 = Not at all Not being able to stop or control worryin = Not at all Worrying too much about different things: 0 = Not at all Trouble relaxin = Not at all Being so restless that it is hard to sit still: 0 = Not at all Becoming easily annoyed or irritable: 0 = Not at all Feeling afraid as if something awful might happen: 0 = Not at all Total POLLY-7 score (0-4 normal; 5-9 mild; 10-14 moderate; 15-21 severe): 0 Source: Developed by Drs. Ze Villatoro, Marnie Olsen, Tim Painter and colleagues, with an educational jase from [employer]. POLLY-7 Assessment Billing POLLY-7 Assessment Tool: POLLY-7 Assessment 62714 Review of Systems Const Denies chills, Denies fatigue, Denies fever(s), Denies headache(s) and Denies weakness Eyes Denies change in vision ENT Denies dizziness, Denies headache(s), Denies hearing loss, Denies nasal congestion, Denies sinus pain, Denies sinus pressure and Denies sore throat Card Denies chest pain, Denies lightheadedness, Denies dyspnea and Denies other (palpitations) Resp Denies cough, Denies dyspnea and Denies wheezing GI Denies abdominal pain, Denies melena, Denies hematochezia, Denies change in bowel habits, Denies dyspepsia and Denies nausea Denies hematuria and Denies dysuria Musc Denies abnormal gait, Denies myalgias, Denies arthralgias, Denies numbness and Denies tingling Skin/Breast Denies rash, Denies unusual bruising and Denies wounds Neuro Denies abnormal gait, Denies dizziness, Denies headache(s), Denies memory loss, Denies numbness, Denies Sensory deficit (Neuro), Denies tingling and Denies weakness Psych Denies anxiety, Denies depression and Denies memory loss Endo Denies cold intolerance, Denies fatigue, Denies heat intolerance, Denies polydipsia and Denies polyuria Pramod/Lymph Denies easy bleeding and Denies easy bruising Aller/Immun Denies wheezing Physical exam (Primary Care) Vital Signs: Last Vital Signs Temp 98.7 F 05/11/25 15:31 Pulse 80 05/11/25 15:31 Resp 16 05/11/25 15:31 BP 100/66 05/11/25 15:31 Pulse Ox 96 05/11/25 15:31 Oxygen Delivery Method Room Air 05/11/25 15:31 BMI result Body Mass Index 33.1 Tobacco/Smoking Status: Tobacco use Status Tobacco use date assessed 05/11/25 05/11/25 15:34 Patient Tobacco Use Status Never used Tobacco 05/11/25 15:34 e-Cigarette/Vaping Use Never Used 05/11/25 15:34 PHQ-9: PHQ-9 Score PHQ-9: Total score 1 05/11/25 15:46 Depression Screening Interpretation: Negative Thrive Assessment: Date of Thrive Assessment Date Thrive assessed 05/11/25 05/11/25 15:34 Currently or been in a relationship where the following occur: No concerns reported Const General: no acute distress, well developed, alert and awake Nutritional Appearance: well nourished Orientation/consciousness: patient oriented x3 HENMT Head: Yes normocephalic and Yes atraumatic Ears: hearing grossly normal bilaterally and TM's normal bilaterally General nose exam: Normal external nose present and Normal nares present Mouth: Normal oral and palatal mucosa present and moist mucous membranes Teeth and gingiva: dentition normal Throat: Yes posterior oropharynx normal Eyes General: appearance normal, both eyes and all related structures Pupils: Equal, round and reactive pupils present and Pupil accommodation reflex normal EOM: EOMs intact bilaterally Neck Neck: Yes normal visual inspection, Yes no lymphadenopathy and Yes trachea midline Thyroid: Thyroid normal Carotids: no bruits Lymphatic: no lymphadenopathy noted Chest Chest palpation & inspection: normal inspection of the chest Resp Effort & Inspection: normal respiratory effort Auscultation: clear to auscultation bilaterally Cardio Rate: regular rate Rhythm: regular rhythm Heart sounds: S1 normal heart sound present, S2 normal heart sound present, no gallops, no murmurs and no rubs Bruits: no abdominal aortic bruits and no carotid bruits GI Palpation (GI): No Abdominal aortic bruit present, Soft to palpation, nontender, No hepatosplenomegaly present and No Rebound tenderness present Auscultation: normal bowel sounds General: Yes no CVA tenderness Back/Spine/Pelvis Back: no CVA tenderness Cervical Spine: cervical ROM normal and No Cervical spine tenderness Thoracic/Lumbar Spine: thoraco-lumbar ROM normal, No pain with thoraco-lumbar ROM, No thoracic spinal tenderness and No lumbar spinal tenderness Skin Lesions: no lesions Rashes: no rashes Trauma: no lacerations or abrasions Wounds: no wounds Nails: normal Neuro General: patient oriented x3 Cranial nerves: Yes Equal, round and reactive pupils present Cognition (Neuro): normal cognition Gait exam (Neuro): Normal gait present Motor exam (neuro): 5/5 motor strength present throughout Sensory Exam: No Sensory deficit (Neuro) Deep tendon reflexes (DTR's): Right patellar reflex intensity grade: 2+ and Left patellar reflex intensity grade: 2+ Extrem General: Yes normal to inspection and No edema Psych Appearance: grossly normal Affect: normal affect Attitude: cooperative Thought process: Normal thought process present Coding Level of Care Code Est Pt Level 3 (84646) Est Pt Prev Care 18-39y(10446) Diagnoses Annual physical exam Z00.00 Elevated liver enzymes R74.8 Hyperlipidemia E78.5 Hypothyroidism E03.[address] R68.82 Fatigue R53.83 Additional Codes POLLY-7 Assessment Billing - POLLY-7 Assessment Tool: POLLY-7 Assessment 91813 ([id number]) PHQ-9 - 60316 - PHQ-9 Billing: Yes ([id number]) Assessment & Plan Assessment & Plan (1) Annual physical exam: Code(s): Z00.00 - Encounter for general adult medical examination without abnormal findings Category: Medical Plan: 34-year-old male presents for complete physical exam Encouraged healthy diet with active lifestyle and plenty of exercise (2) Elevated liver enzymes: Code(s): R74.8 - Abnormal levels of other serum enzymes Category: Medical Plan: Mild AST elevation Likely due to weight gain Encouraged weight loss and dehydration Will recheck with next blood draw and if still elevated will investigate further (3) Hyperlipidemia: Code(s): E78.5 - Hyperlipidemia, unspecified Category: Medical Plan: LDL cholesterol 118 is too high Patient is on rosuvastatin 40 mg daily Continue current medication and work at a diet lower in saturated fats and cholesterol as well as working on weight loss. If still elevated, we did discuss today that we could use Zetia as an adjunct medication (4) Hypothyroidism: Code(s): E03.9 - Hypothyroidism, unspecified Category: Medical Plan: Thyroid hormone levels are all within normal range on levothyroxine Continue current medication (5) Decreased sex drive: Code(s): R68.82 - Decreased libido Category: Medical (6) Fatigue: Code(s): R53.83 - Other fatigue Category: Medical Plan Patient notes ongoing fatigue and also decreased libido Review of systems for sleep apnea negative at this time though patient does have body habitus which may be associated with sleep apnea. Will discuss further at a subsequent visit. Thyroid hormones within range as described above. Have not checked testosterone levels and will do so Will also check CBC and inflammatory markers Orders: Orders Comprehensive [place]. Panel Fast Today R74.8 - Abnormal levels of other serum enzymes, Z00.00 - Encounter for general adult medical examination without abnormal findings Free T4 (Free Thyroxine) Today E03.9 - Hypothyroidism, unspecified Triiodothyronine T3 Total Today E03.9 - Hypothyroidism, unspecified Thyroid Stimulating Hormone Today E03.9 - Hypothyroidism, unspecified Erythrocyte Sedimentation Rate Today R53.83 - Other fatigue CRP High Sensitivity Today R53.83 - Other fatigue Testosterone, Free/Total Today R53.83 - Other fatigue Complete Blood Count Auto Diff Today R53.83 - Other fatigue, Z00.00 - Encounter for general adult medical examination without abnormal findings
--- OUTSIDE RECORDS SUMMARY | 2025-05-11 15:29 | XMS_ITS | Data Portability ---
Author Organization [place] [facility] [place] [facility], [facility] Address [address] [place] [address] Care Team Providers Care Fur Dry Cleaner Hand Name Role Phone ALYSSA MERINO Primary Care Provider Assessment No assessment recorded. Plan of Treatment Reminders Order Date Submit Date Provider Last Modified By Organization Details Last Modified Time Details Appointments None recorded. Lab None recorded. Referral None recorded. Procedures None recorded. Surgeries None recorded. Imaging MRI, lumbar spine, w/o contrast - EVAL LUMBAR RADICULOPAT HY 2023 024 [email or web address] [facility] ([facility]), [address] [place], [address], 4 10:08:24 Medication Orders cyclobenzap rine 5 mg tablet 2023 024 [email or web address] [id number], [address] [place], [address], 10:14:50 Patient TargetsNo targets recorded. Patient InstructionsNo instructions recorded. Reason for Referral None Reported. Results Created Date Observation Date Name Description Value Unit Range Abnormal Flag Note LastModifiedBy Organization Detail LastModifiedTime 03/11/2003/10/2024 MRI, lumba r spine , w/o contr ast No observ ation record ed. [facility] [address] [address], [place], [address], 03/14/2024 07:54:50 Result Notes None recorded. Medical [...] Updated DateTime 03/02/2024 175.26 cm 31 kg/m2 81098.4 g LINWOOD CALLES [facility] 03/02/2024 09:33:23 Date Recorded Body height Body mass index (BMI) Body weight Provider Name and Address Organization Details Last Updated DateTime 03/27/2024 175.26 cm 31 kg/m2 49009.4 g [facility] 03/27/2024 09:02:49 Date Recorded Body height Body mass index (BMI) Body weight Provider Name and Address Organization Details Last Updated DateTime 06/30/2024 175.26 cm 31 kg/m2 64470.4 g [facility] 06/30/2024 08:40:58 Social History None recorded. Functional Status None recorded. Mental Status None recorded. Family History Nothing Reported. Medical History No medical history recorded. Past Encounters Encounter ID Performer Location Encounter Start Date Encounter Closed Date Diagnosis/Indication Diagnosis SNOMED-CT Code Diagnosis ICD10 Code Diagnosis IMO Codes Diagnosis Note [id number] CORONA HERNANDEZ PA-C [place] [address] [place] [address] 03/02/2024 09:21:13 03/27/2024 10:08:24 Lumbar radiculopathy 205405642 M54.16 [id number] CORONA HERNANDEZ PA-C [place] [address] [place] [address] 03/27/2024 08:53:20 04/18/2024 12:47:51 Low back pain 274011500 M54.50 [id number] CORONA HERNANDEZ PA-C [place] [address] [place] [address] 06/30/2024 08:36:50 07/21/2024 09:52:27 Lumbar radiculopathy 193856106 M54.16 [id number] Health Concerns Section Related Observation LastModified by Organization Detai ls LastModified Time None Recorded Concern Status LastModified by Organization Details LastModified Time None Recorded Advance Directives Directive None Recorded Payers Insurance Date Sequence Insurance Name Policy Number Policy Torres Covered Member ID Torres Member ID Guarantor Name 07/21/2024 1 [facility] () Kiran Santillan [id number] Kiran Santillan Notes Date Note Type Note [...] No ankle clonus X-rays ordered, obtained at [facility] and reviewed independently at [facility], 2 views of the lumbar spine reveals [...] plan. All other questions asked and answered. [facility] speech recognition head tennis coach software was used to create portions of this document. An attempt at proofreading has been made to minimize errors. Please call for corrections. CORONA HERNANDEZ PA-C [address] [facility] [address], [place], [address], [facility] [place] [facility] 03/02/2024 11:32:45 03/27/2024 text/html I am [...] this time I would refer him to [facility] for injection type therapy. We discussed that [...] plan. All her questions asked and answered. [facility] speech recognition head tennis coach software was used to create portions of this document. An attempt at proofreading has been made to minimize errors. Please call for corrections. CORONA HERNANDEZ PA-C [address] [place] [address] [address], [place], [address], [facility] [place] [facility] 03/27/2024 09:43:11 06/30/2024 text/html I am seeing the patient today under the supervision of Dr. Morse who was available but who did not see the patient. HPI: Patient is a pleasant 33-year-old male who presents in follow-up for ongoing low back pain With radicular symptoms. Patient presents today stating he was seen and treated at [facility] he received 1 injection has been feeling great since then. Is back to his previous level of function lifting and continuing his home exercise program. He has had follow-up with [facility] and does have set [...] answered. Patient expressed understanding agreement of plan. [employer] speech recognition head tennis coach software was used to create portions of this document. An attempt at proofreading has been made to minimize errors. Please call for corrections. CORONA HERNANDEZ PA-C [address] [place] [address], [place], [address], [facility] [place] [facility] 06/30/2024 08:56:04
--- OUTSIDE RECORDS SUMMARY | 2025-05-11 15:29 | XMS_ITS | Encounter Summary ---
Author Organization [facility] Address [address] [place] [address] Phone Care Team Providers Care Post Closing Specialist Name Role Phone Ze Calles MD Primary Care Provider [phone] Encounter Details Date Type Department Care Team (Late st Contact Info) Description 11/28/2017 Conversion Encounter [facility] [address] [place] [address] Ze Calles MD [address] [place] [address] Social History Tobacco Use Types Packs/Day Years [...] on filedocumented in this encounter Care Teams Post Closing Specialist Relationship Specialty Start Date End Date Ze Calles MD [address] [place] [address] PCP - General 11/17/17 08/22/24 documented as of this encounter
--- OUTSIDE RECORDS SUMMARY | 2025-05-11 15:29 | XMS_ITS | Clinical Summary ---
Author Organization [facility] Address [address] [place] [address] Care Team Providers Care Supervisor Stripping Name Role Phone Unavailable Primary Care Provider [...]
--- OUTSIDE RECORDS SUMMARY | 2025-05-11 15:29 | XMS_ITS | Clinical Summary ---
Author Organization [facility] Address [address] [place] [address] Phone Care Team Providers Care Advertising Strategist Name Role Phone Unavailable Primary Care Provider [...]
[2025-05-11 15:31] VITALS: BP 100/66; PULSE 80; RESP 16; TEMP 37.1; O2SAT 96; BMI 33.1
== END 2025-05-11 16:00 | disposition home or self-care (01) ==
LOC: HO.HMCFM 15:25
PROVIDERS: PCP Family Medicine; Visit Provider Family Medicine
DX: Z00.00 Encounter for general adult medical examination without abnormal findings (principal); E03.9 Hypothyroidism, unspecified; E78.5 Hyperlipidemia, unspecified; R74.01 Elevation of levels of liver transaminase levels; R53.83 Other fatigue; R68.82 Decreased libido

== ENCOUNTER → 2025-05-11 15:24 | Outpatient (BNVA) | payer OTHER, SELFPAY | PROVIDERS: PCP Family Medicine; Visit Provider Family Medicine | DX: Z00.00 Encounter for general adult medical examination without abnormal findings (principal); Z13.31 Encounter for screening for depression; Z13.39 Encounter for screening examination for other mental health and behavioral disorders; R74.8 Abnormal levels of other serum enzymes; E78.5 Hyperlipidemia, unspecified; E03.9 Hypothyroidism, unspecified; R68.82 Decreased libido; R53.83 Other fatigue | CPT/HCPCS: 96127; 99212 ==